=== PATIENT | male | born 1950 | race Caucasian/White ===

== ENCOUNTER 2020-10-31 12:23 | Outpatient (CLI) | payer MEDICARE, OTHER ==
--- NOTE | 2020-10-31 17:12 | XRAY Report ---
PROCEDURE: Chest 2 View X-Ray INDICATIONS: COUGH TECHNIQUE: 2 view(s) of the chest. COMPARISON: None. FINDINGS: Surgical changes and devices: None. Lungs and pleura: No pleural effusions or pneumothorax. Lungs are clear. Mediastinum: Mediastinal contours are normal. Heart size is normal. Bones and chest wall: No suspicious bony abnormalities. Soft tissues appear unremarkable. IMPRESSION: No acute cardiopulmonary disease process. Reviewed by: Kim Madison MD, PhD on 10/31/2020 5:10 PM PDT Approved by: Kim Madison MD, PhD on 10/31/2020 5:10 PM PDT Station ID: [id number]
== END 2020-10-31 12:24 | disposition home or self-care (01) ==
LOC: DI.N 12:23
PROVIDERS: ATTEND Physician Assistant
DX: R05 Cough (principal); R06.02 Shortness of breath

== ENCOUNTER 2023-01-13 12:23 | Outpatient (CLI) | payer MEDICARE ==
[2023-01-13] MEDS ORDERED: iohexoL-300 100 ML VIAL IVP ONE (13:29)
--- NOTE | 2023-01-14 16:56 | CT Report ---
PROCEDURE: IVP INDICATIONS: GROSS HEMATURIA CONTRAST: Omni 300, 140ml TECHNIQUE: After the administration of intravenous contrast, 5 mm thick sections acquired from the diaphragms to the symphysis. 5 mm thick coronal and sagittal reformats were acquired. For radiation dose reducti on, the following was used: automated exposure control, adjustment of mA and/or kV according to benedicto ent size. COMPARISON: None. FINDINGS: Image quality: Excellent. Urinary system: Both kidneys are normal in size. No hydronephrosis or nephrolithiasis on pre-contras t images. Left renal cystic lesion with a asymmetric thickened wall measuring 2.8 cm (series 6, imag e 38). Additional benign renal cystic lesions are present. The opacified renal calyces and ureters ap pear normal, without filling defect. Bladder wall thickness is normal, accounting for underdistentio n. No calcified bladder stones. No filling defect within the opacified bladder. OTHER Lung bases and heart: 3 mm solid nodule in the right middle lobe (series 6, image 1). Liver: Multiple hepatic cysts. Additional heterogeneous enhancement of the posterior segment 2 measur ing 3.3 cm (series 6, image 15). Gallbladder and biliary tree: Gallbladder sludge versus small stones. No wall thickening. No biliary dilation. Spleen: No splenomegaly. Pancreas: No pancreatic ductal dilation. Adrenals: No adrenal nodule. Bowel and peritoneum: No bowel distension. No pathologic free fluid. Abdominal Lymph nodes: No central or retroperitoneal adenopathy. Vessels: Unremarkable. Reproductive organs: Prostatomegaly. Pelvic Lymph nodes: Unremarkable. Bones: No aggressive osseous abnormality. Other: Small left inguinal hernia containing fat. IMPRESSION: Heterogeneous enhancement of the posterior segment 2 of the liver, measuring 3.3 cm. Mass not exclude d. Recommend CT (liver mass protocol). Left-sided renal cystic lesion with an asymmetrically thickened wall measuring 2.8 cm. This could rep resent a Bosniak 3 or 4 cystic mass. Recommend evaluation with MRI and urology referral. No filling defects within the opacified renal clicking system or ureters. Reviewed by: Tomi Castaneda on 01/14/2023 4:55 PM PDT Approved by: Tomi Castaneda on 01/14/2023 4:55 PM PDT Station ID: [id number]
== END 2023-01-13 12:24 | disposition home or self-care (01) ==
LOC: DI 12:23
PROVIDERS: ATTEND Physician Assistant
DX: R31.0 Gross hematuria (principal); N28.1 Cyst of kidney, acquired
CPT/HCPCS: 74178; Q9967

== ENCOUNTER 2023-01-26 09:11 | Outpatient (CLI) | payer MEDICARE ==
--- NOTE | 2023-01-26 10:20 | Ultrasound Report ---
PROCEDURE: Aorta Screening INDICATIONS: HIST OF SMOKING TECHNIQUE: Real time scanning was performed of the aorta and iliac arteries, with image documentatio n. COMPARISON: None. FINDINGS: Aorta: Proximal aortic diameter measures 2.8 x 2.7 cm. Mid-aorta measures 2.3 x 2.0 cm. Distal aor tic diameter is 1.9 x 1.9 cm. Iliac arteries: Right common iliac artery measures 1.3 x 1.3 cm. Left common iliac artery measures 1.3 x 1.3 cm. IMPRESSION: No abdominal aortic aneurysm. Consider 5 year follow-up. Recommended intervals for follow-up imaging of ectatic aortas and abdominal aortic aneurysms, per ACR consensus guidelines: 2.5-2.9 cm: 5 years 3.0-3.4 cm: 3 years 3.5-3.9 cm: 2 years 4.0-4.4 cm: 1 year 4.5-4.9 cm: 6 months + endovascular referral 5.0-5.5 cm: 3-6 months + endovascular referral Reviewed by: Jonatan Mercado MD on 01/26/2023 10:19 AM PDT Approved by: Jonatan Mercado MD on 01/26/2023 10:19 AM PDT Station ID: [id number]
== END 2023-01-26 09:12 | disposition home or self-care (01) ==
LOC: DI 09:11
PROVIDERS: ATTEND Physician Assistant
DX: Z13.6 Encounter for screening for cardiovascular disorders (principal); Z87.891 Personal history of nicotine dependence

== ENCOUNTER 2023-03-05 13:11 | Outpatient (CLI) | payer MEDICARE ==
--- NOTE | 2023-03-05 16:53 | CT Report ---
PROCEDURE: ABDOMEN W/WO INDICATIONS: ABNORMAL CT CONTRAST: 100ml omni 300 TECHNIQUE: 4 phase scanning was performed. After the administration of intravenous contrast, 5 mm thick section s acquired from the diaphragm to the symphysis. 5 mm coronal and sagittal reformats were acquired. For radiation dose reduction, the following was used: automated exposure control, adjustment of mA a nd/or kV according to patient size. COMPARISON: 01/13/2023 FINDINGS: Image quality: Good Lower chest: Basal scarring/atelectasis. No basal effusions. Small hiatal hernia. Normal heart size. Solid organs: There are liver cysts. Some cysts appear greater than fluid attenuation, but with no co nvincing enhancement. The heterogeneous posterior left lobe region corresponds to a cavernous hemangi roel. Gallbladder sludge versus contrast excretion. No pathologic dilation of the biliary system or pancrea tic duct. No splenomegaly. There is a tiny indeterminate hypervascular focus in the splenic superior pole, possibly another hemangioma. No adrenal nodules. There are renal cysts. Left lower pole Bosniak 3 lesion is present. No hydronephrosis. Vessels and lymph nodes: No pathologic lymphadenopathy by size criteria. No abdominal aortic aneurysm . Portal vein is patent. Bowel and peritoneum: No bowel obstruction. No pathologic abscess or ascites. Body wall: Unremarkable Bones: Degenerative changes, no acute or suspicious osseous finding. IMPRESSION: The posterior left hepatic lobe lesion corresponds to a benign cavernous hemangioma. Other suspected hepatic cysts are present, some of which measure above fluid density. Left lower pole Bosniak 3 renal lesion. If intervention is not pursued, recommend follow-up imaging i n 6 months or sooner with multiphase CT or MRI. Reviewed by: Jonatan Mercado MD on 03/05/2023 4:51 PM PDT Approved by: Jonatan Mercado MD on 03/05/2023 4:51 PM PDT Station ID: [id number]
[2023-03-05] MEDS ORDERED: iohexoL-300 100 ML VIAL IVP ONE (19:03)
== END 2023-03-05 13:12 | disposition home or self-care (01) ==
LOC: DI 13:11
PROVIDERS: ATTEND Physician Assistant
DX: D18.03 Hemangioma of intra-abdominal structures (principal); N28.89 Other specified disorders of kidney and ureter; Z79.899 Other long term (current) drug therapy
CPT/HCPCS: 74170; Q9967

== ENCOUNTER 2023-05-17 20:02 | Emergency (ER) | payer MEDICARE ==
--- NOTE | 2023-05-17 20:21 | ED Physician Documentation ---
History of Present Illness - Stated complaint Stated Complaint: - Chief complaint Chief Complaint: General - History obtained from History obtained from: Patient - Additonal information Additional information: 72-year-old gentleman with recent hematuria and necessitated Aldana. He had them for about a week. It was removed today and has not been able to urinate since. PD PAST MEDICAL HISTORY - Past Medical History Past Medical History: Yes - Past Surgical History Past Surgical History: Yes - Allergies Allergies/Adverse Reactions: Allergies Allergy/AdvReac Type Severity Reaction Status Date / Time No Known Drug Allergies Allergy Verified 05/17/23 20:10 - Social History Does the pt smoke?: No Smoking Status: Never smoker Does the pt drink ETOH?: No Does the pt have substance abuse?: No - Immunizations Immunizations are current?: Yes PD ED PE NORMAL - Vitals Vital signs reviewed: Yes - General General: Alert and oriented X 3, Other (Appears uncomfortable) - Abdomen Abdomen: Soft - Neuro Neuro: Alert and oriented X 3, Normal speech Results - Vitals Vitals: Vital Signs - 24 hr 05/17/23 05/17/23 20:10 21:07 Temperature 36.8 C Heart Rate 80 Respiratory 18 16 Rate Blood Pressure 160/90 H O2 Saturation 97 Oxygen O2 Source Room air PD Medical Decision Making - ED course ED course: I personally placed a 22 Austrian three-way after initial evaluation which had some small clots in it but was mostly clear. It was flushed and drained well. After which I performed a bedside ultrasound and there was no large amount of clot in the bladder. Departure - Departure Disposition: 01 Home, Self Care Clinical Impression: Urinary retention Condition: Good Record reviewed to determine appropriate education?: Yes Instructions: ED Catheter Care Aldana Comments: As discussed, given the relatively small amount of clot in the bladder I think more likely it is your prostate that is inflamed causing the urinary retention. Follow-up with your urologist and continue Flomax. Call his office tomorrow for an appointment. Return for new or worsening symptoms. Forms: PCP List
[2023-05-17 21:50] VITALS: BP 148/78; O2SAT 98
== END 2023-05-17 21:43 | disposition home or self-care (01) ==
LOC: ED 20:02
DX: T83.098A Other mechanical complication of other urinary catheter, initial encounter (principal); R33.9 Retention of urine, unspecified
CPT/HCPCS: 99281; 99283

== ENCOUNTER 2023-05-25 11:02 | Emergency (ER) | payer MEDICARE ==
[2023-05-25 11:16] VITALS: BP 143/82; O2SAT 99
[2023-05-25 12:00] LABS: BASOPHILS # (AUTO) 0.1 10^3/uL (0.0-0.1); BASOPHILS % (AUTO) 0.5 %; EOSINOPHILS # (AUTO) 0.3 10^3/uL (0.0-0.7); EOSINOPHILS % (AUTO) 3.2 %; HCT - HEMATOCRIT 36.1 % (42.0-52.0); HGB - HEMOGLOBIN 11.2 g/dL (14.0-18.0); LYMPHOCYTES # (AUTO) 1.5 10^3/uL (1.5-3.5); LYMPHOCYTES % (AUTO) 14.9 %; MEAN CORPUSCULAR HEMOGLOBIN 29.7 pg (27.0-31.0); MEAN CORPUSCULAR VOLUME 95.8 fL (80.0-94.0); MEAN PLATELET VOLUME 9.4 fL (7.4-11.4); MONOCYTES # (AUTO) 0.8 10^3/uL (0.0-1.0); MONOCYTES % (AUTO) 8.1 %; NEUTROPHILS # (AUTO) 7.1 10^3/uL (1.5-6.6); NEUTROPHILS % (AUTO) 72.9 %; PLT - PLATELET COUNT 334 10^3/uL (130-450); RED BLOOD COUNT 3.77 10^6/uL (4.70-6.10); RED CELL DISTRIBUTION WIDTH 14.6 % (12.0-15.0); WHITE BLOOD COUNT 9.7 x10^3/uL (4.8-10.8)
[2023-05-25 12:17] LABS: CALCIUM 9.5 mg/dL (8.5-10.3); CREATININE 0.9 mg/dL (0.6-1.3); POTASSIUM 4.8 mmol/L (3.5-4.5)
[2023-05-25 12:24] LABS: PARTIAL THROMBOPLASTIN TIME 30.9 secs (24.9-33.3)
[2023-05-25 12:28] LABS: INR 1.2 (0.8-1.2); PT - PROTHROMBIN TIME 13.2 secs (9.9-12.6)
--- NOTE | 2023-05-25 12:41 | ED Physician Documentation ---
History of Present Illness - Stated complaint Stated Complaint: BLOOD - Chief complaint Chief Complaint: Abd Pain - History obtained from History obtained from: Patient - History of Present Illness Timing: Today Pain level max: 0 Pain level now: 0 - Additonal information Additional information: 72-year-old male who has a history of enlarged prostate with bleeding into the bladder from enlarged veins. He has a Aldana catheter in place for recurrent hematuria. He underwent cystoscopy with cauterization of veins in January. His urologist is in [place]. Today he noted some blood in the catheter bag. No significant clots. No abdominal pain, fevers, chills. Review of Systems Constitutional: denies: Fever, Chills : reports: Hematuria Skin: denies: Rash Musculoskeletal: denies: Neck pain, Back pain Neurologic: denies: Headache PD PAST MEDICAL HISTORY - Past Medical History Past Medical History: Yes Cardiovascular: Hypertension Derm: Psoriasis - Past Surgical History Past Surgical History: Yes HEENT: Tonsil/Adenoidectomy - Present Medications Home Medications: Ambulatory Orders Medication Instructions Recorded Confirmed cephALEXin [Keflex] 500 mg PO Q6H #28 cap 05/25/23 - Allergies Allergies/Adverse Reactions: Allergies Allergy/AdvReac Type Severity Reaction Status Date / Time No Known Drug Allergies Allergy Verified 05/25/23 11:14 - Social History Does the pt smoke?: No Smoking Status: Never smoker Does the pt drink ETOH?: No Does the pt have substance abuse?: No - Immunizations Immunizations are current?: Yes - POLST Patient has POLST: No PD ED PE NORMAL - Vitals Vital signs reviewed: Yes - General General: Alert and oriented X 3, No acute distress - HEENT HEENT: Moist mucous membranes - Abdomen Abdomen: Soft, Non tender, Non distended - Male Male : Other (Aldana catheter in place, the urine bag is dark in color, but can still see through the bag. The more recent urine in the top of the Aldana tube is light yellow in color. No significant blood. There is sediment in the urine.) - Back Back: No CVA TTP - Derm Derm: Warm and dry - Neuro Neuro: Alert and oriented X 3 - Psych Psych: Normal mood, Normal affect Results - Vitals Vitals: Vital Signs - 24 hr 05/25/23 11:07 Temperature 36.0 C L Heart Rate 69 Respiratory 16 Rate Blood Pressure 143/82 H O2 Saturation 99 Oxygen O2 Source Room air - Labs Labs: Laboratory Tests 05/25/23 05/25/23 05/25/23 11:51 11:51 11:51 WBC 9.7 RBC 3.77 L Hgb 11.2 L Hct 36.1 L MCV 95.8 H MCH 29.7 MCHC 31.0 L RDW 14.6 Plt Count 334 MPV 9.4 Neut # (Auto) 7.1 H Lymph # (Auto) 1.5 Peach # (Auto) 0.8 Eos # (Auto) 0.3 Baso # (Auto) 0.1 Absolute Nucleated RBC 0.00 Nucleated RBC % 0.0 PT 13.2 H INR 1.2 APTT 30.9 Sodium 136 Potassium 4.8 H Chloride 104 Carbon Dioxide 27 Anion Gap 5.0 L BUN 17 Creatinine 0.9 Estimated GFR (MDRD) 82 L Glucose 97 Calcium 9.5 PD Medical Decision Making - ED course Complexity details: reviewed results, re-evaluated patient, considered differential, d/w patient ED course: Patient with a history of hematuria presents with hematuria. There is no evidence of a blocked Aldana catheter. He states that this happened recently with a UTI, therefore we will treat him with antibiotics. A urinalysis was sent as well. Possible that this could be irritation from the Aldana catheter as well, therefore recommend he contact his urologist to see if he needs a repeat cystoscopy. Patient is not on blood thinners. No significant lab abnor malities. We will treat with Keflex. Patient counseled regarding signs and symptoms for which I believe and urgent re-evaluation would be necessary. Patient with good understanding of and agreement to plan and is comfortable going home at this time This document was made in part using voice recognition software. While efforts are made to proofread this document, sound alike and grammatical errors may occur. Departure - Departure Disposition: Home, Self Care Clinical Impression: Hematuria Qualifiers: Hematuria type: gross Qualified Code(s): R31.0 - Gross hematuria Condition: Good Instructions: ED Catheter Care Aldana, ED Hematuria Follow-Up: JENNIFER HAHN PA-C [Primary Care Provider] - Within 1 week Prescriptions: cephALEXin [Keflex] 500 mg PO Q6H #28 cap Comments: Please contact your urologist. Please take all antibiotics until gone. The hematuria may be due to trauma to the inside of your bladder from the Aldana catheter. This may require another cystoscopy if they have more veins that they need to cauterize. We will start you on antibiotics as well. A urine culture will take 2 to 3 days, we will call you if an antibiotic change is needed. Please return for pain, fever or other new or worrisome symptoms. Make sure you are drinking plenty of water at home to prevent clot formation. Your prescription was sent electronically to [facility] in [place]. Forms: PCP List
[2023-05-25 13:38] LABS: GLUCOSE, URINE (UA) NEGATIVE (NEGATIVE); KETONES,URINE (UA) NEGATIVE (NEGATIVE); LEUKOCYTE ESTERASE, URINE SMALL (NEGATIVE); NITRITE,URINE NEGATIVE (NEGATIVE); OCCULT BLOOD,URINE LARGE (NEGATIVE); PROTEIN,URINE >=300 mg/dL (NEGATIVE); UROBILINOGEN,URINE 0.2 (NORMAL) E.U./dL (NORMAL)
[2023-05-25 13:40] LABS: CLARITY,URINE CLOUDY (CLEAR)
[2023-05-25 13:53] LABS: BACTERIA,URINE Moderate /HPF (None Seen); BILIRUBIN,URINE NEGATIVE (NEGATIVE); ICTOTEST,URINE NEGATIVE; RBC,URINE TNTC /HPF (0-5); SQUAMOUS EPITHELIAL CELL,UR NONE SEEN (<= Few); WBC,URINE >25 /HPF (0-3)
== END 2023-05-25 13:14 | disposition home or self-care (01) ==
LOC: ED 11:02
DX: R31.0 Gross hematuria (principal); R06.02 Shortness of breath; R06.00 Dyspnea, unspecified
CPT/HCPCS: 36415; 80048; 81001; 81003; 85025; 85610; 85730; 87077; 87086; 87181; 99283

== ENCOUNTER 2023-05-25 13:44 | Outpatient (CLI) | payer MEDICARE ==
--- NOTE | 2023-05-25 16:08 | XRAY Report ---
PROCEDURE: Chest 2 View X-Ray INDICATIONS: SOB EDEMA TECHNIQUE: 2 views of the chest were acquired. COMPARISON: Lung bases on CT abdomen 03/05/2023. CXR 10/31/2020. FINDINGS: Surgical changes and devices: None. Lungs and pleura: No pleural effusions or pneumothorax. Lungs are clear. Mediastinum: Mediastinal contours appear normal. Heart size is normal. Bones and chest wall: No suspicious bony lesions. Overlying soft tissues appear unremarkable. IMPRESSION: No acute cardiopulmonary process. Reviewed by: Sanya Dupont MD on 05/25/2023 4:07 PM PST Approved by: Sanya Dupont MD on 05/25/2023 4:07 PM [facility] Station ID: [id number]
== END 2023-05-25 13:45 | disposition home or self-care (01) ==
LOC: DI 13:44
PROVIDERS: ATTEND Physician Assistant
DX: R06.02 Shortness of breath (principal); R60.0 Localized edema

== ENCOUNTER 2023-05-27 08:56 | Emergency (ER) | payer MEDICARE ==
--- NOTE | 2023-05-27 10:38 | ED Physician Documentation ---
History of Present Illness - Stated complaint Stated Complaint: - Chief complaint Chief Complaint: General - History obtained from History obtained from: Patient - Additonal information Additional information: Patient is a 72-year-old male presenting for evaluation of issues with his Aldana catheter which was noticed overnight. Patient had a catheter placed on May 17 for urinary retention with some hematuria. Reports he was hospitalized in [facility] at the beginning of the month with similar issues with urinary retention and a large clot in his bladder that required cystoscopy. The catheter was then removed and presented back to the ER on the day it was removed as he was unable to urinate and a three-way catheter was placed. He was seen here 2 days ago with issues with his catheter and also put on an antibiotic. He states that he has been having leakage from his catheter which has been soaking his close and also has noticed more blood in his urine. He does not take a b lood thinner. He has an appointment for urology on June 10. No fever, chest pain, abdominal pain, vomiting. Review of Systems Constitutional: denies: Fever Cardiac: denies: Chest pain / pressure Respiratory: denies: Dyspnea GI: denies: Abdominal Pain : reports: Unable to Void, Hematuria PD PAST MEDICAL HISTORY - Past Medical History Past Medical History: Yes Cardiovascular: Hypertension Derm: Psoriasis - Past Surgical History Past Surgical History: Yes HEENT: Tonsil/Adenoidectomy - Present Medications Home Medications: Ambulatory Orders Medication Instructions Recorded Confirmed cephALEXin [Keflex] 500 mg PO Q6H #28 cap 05/25/23 - Allergies Allergies/Adverse Reactions: Allergies Allergy/AdvReac Type Severity Reaction Status Date / Time No Known Drug Allergies Allergy Verified 05/27/23 14:22 - Social History Does the pt smoke?: No Smoking Status: Never smoker Does the pt drink ETOH?: No Does the pt have substance abuse?: No - Immunizations Immunizations are current?: Yes - POLST Patient has POLST: No PD ED PE NORMAL - General General: Alert and oriented X 3, No acute distress, Well developed/nourished - HEENT HEENT: Atraumatic, Moist mucous membranes, Pharynx benign - Neck Neck: Supple, no meningeal sign - Cardiac Cardiac: RRR - Respiratory Respiratory: No respiratory distress, Clear bilaterally - Abdomen Abdomen: Normal bowel sounds, Soft, Non tender, Non distended - Male Male : Other (Three-way catheter with feliz colored urine few small clots and sediment) - Derm Derm: Warm and dry - Neuro Neuro: Normal speech Results - Vitals Vitals: Vital Signs - 24 hr 05/27/23 05/27/23 09:16 12:04 Temperature 36.0 C L 36.6 C Heart Rate 75 72 Respiratory 12 18 Rate Blood Pressure 135/65 H 117/56 L O2 Saturation 95 100 Oxygen O2 Source Room air PD Medical Decision Making - ED course ED course: Patient with Aldana catheter presenting for evaluation of leakage around the catheter site. Catheter was flushed and the clots were cleared per RN. Bladder was irrigated and then stopped and afterwards urine was faint pink-tinged but otherwise mostly clear. Patient is feeling well. Has upcoming appointment with urology. Understands concerning symptoms to return for. Departure - Departure Disposition: 01 Home, Self Care Clinical Impression: Aldana catheter problem, Intermittent gross hematuria Condition: Stable Instructions: ED Catheter Care Aldana Follow-Up: Osbaldo Penn MD [Provider Admit Priv/Credential] - Comments: We have cleared some clots from your bladder and your catheter appears to be working well again. Please continue to have close follow-up with urology and return to the ER with any concerns. Forms: PCP List Discharge Date/Time: 05/27/23 12:04
[2023-05-27 12:13] VITALS: BP 117/56; O2SAT 100
== END 2023-05-27 12:04 | disposition home or self-care (01) ==
LOC: ED 08:56
DX: T83.038A Leakage of other urinary catheter, initial encounter (principal); N02.9 Recurrent and persistent hematuria with unspecified morphologic changes; I10 Essential (primary) hypertension
CPT/HCPCS: 51700; 99284

== ENCOUNTER 2023-05-27 14:14 | Emergency (ER) | payer MEDICARE ==
[2023-05-27 14:54] LABS: BASOPHILS % (AUTO) 0.3 %; EOSINOPHILS # (AUTO) 0.3 10^3/uL (0.0-0.7); EOSINOPHILS % (AUTO) 2.5 %; HCT - HEMATOCRIT 35.2 % (42.0-52.0); HGB - HEMOGLOBIN 11.1 g/dL (14.0-18.0); LYMPHOCYTES # (AUTO) 1.1 10^3/uL (1.5-3.5); LYMPHOCYTES % (AUTO) 8.9 %; MEAN CORPUSCULAR HEMOGLOBIN 30.1 pg (27.0-31.0); MEAN CORPUSCULAR HGB CONC 31.5 g/dL (32.0-36.0); MEAN CORPUSCULAR VOLUME 95.4 fL (80.0-94.0); MEAN PLATELET VOLUME 9.3 fL (7.4-11.4); MONOCYTES % (AUTO) 8.3 %; NEUTROPHILS # (AUTO) 9.7 10^3/uL (1.5-6.6); NEUTROPHILS % (AUTO) 79.6 %; PLT - PLATELET COUNT 304 10^3/uL (130-450); RED BLOOD COUNT 3.69 10^6/uL (4.70-6.10); RED CELL DISTRIBUTION WIDTH 14.4 % (12.0-15.0); WHITE BLOOD COUNT 12.2 x10^3/uL (4.8-10.8)
[2023-05-27 15:37] LABS: CALCIUM 9.2 mg/dL (8.5-10.3); CREATININE 1.4 mg/dL (0.6-1.3); POTASSIUM 3.9 mmol/L (3.5-4.5)
[2023-05-27] MEDS ORDERED: AMOX/CLAV 875 MG/125 MG TABLET PO STA (15:52)
[2023-05-27] MEDS ORDERED: SODIUM CHLORIDE 0.9% 1,000 ML IV STA (15:54)
--- NOTE | 2023-05-27 16:05 | ED Physician Documentation ---
History of Present Illness - Stated complaint Stated Complaint: LEAK - Chief complaint Chief Complaint: General - History obtained from History obtained from: Patient, Family - History of Present Illness Timing: Today Pain level max: 0 Pain level now: 0 - Additonal information Additional information: Patient is a 72-year-old male who presents to the emergency department with hematuria. Seen here earlier today. His catheter was flushed but continues to have blood in the urine at home. He is scheduled for an appoint with urology in June. He was recently placed on Keflex for a UTI. No fevers. No chills. He was lightheaded earlier today while in the shower. Currently asymptomatic. No abdominal pain. He is not on blood thinners. Review of Systems Constitutional: denies: Fever, Chills GI: denies: Vomiting, Diarrhea : reports: Hematuria Skin: denies: Rash Musculoskeletal: denies: Neck pain, Back pain Neurologic: denies: Headache PD PAST MEDICAL HISTORY - Past Medical History Past Medical History: Yes Cardiovascular: Hypertension Derm: Psoriasis - Past Surgical History Past Surgical History: Yes HEENT: Tonsil/Adenoidectomy - Present Medications Home Medications: Ambulatory Orders Medication Instructions Recorded Confirmed cephALEXin [Keflex] 500 mg PO Q6H #28 cap 05/25/23 Amox/Clav 875/125 [Augmentin] 1 tab PO Q12H #14 tablet 05/27/23 - Allergies Allergies/Adverse Reactions: Allergies Allergy/AdvReac Type Severity Reaction Status Date / Time No Known Drug Allergies Allergy Verified 05/27/23 14:22 - Social History Does the pt smoke?: No Smoking Status: Never smoker Does the pt drink ETOH?: No Does the pt have substance abuse?: No - Immunizations Immunizations are current?: Yes - POLST Patient has POLST: No PD ED PE NORMAL - Vitals Vital signs reviewed: Yes - General General: Alert and oriented X 3, No acute distress - HEENT HEENT: PERRL, Moist mucous membranes - Neck Neck: Supple, no meningeal sign - Cardiac Cardiac: RRR, Strong equal pulses - Respiratory Respiratory: No respiratory distress, Clear bilaterally - Abdomen Abdomen: Soft, Non tender, Non distended - Derm Derm: Warm and dry - Extremities Extremities: No edema - Neuro Neuro: Alert and oriented X 3 - Psych Psych: Normal mood, Normal affect - Free text exam Free text exam: Dark blood in the Aldana catheter. Results - Vitals Vitals: Vital Signs - 24 hr 05/27/23 05/27/23 14:22 18:20 Temperature 36.5 C Heart Rate 110 H 80 Respiratory 16 18 Rate Blood Pressure 110/63 112/64 O2 Saturation 99 98 Oxygen O2 Source Room air - Labs Labs: Laboratory Tests 05/27/23 05/27/23 14:49 14:49 WBC 12.2 H RBC 3.69 L Hgb 11.1 L Hct 35.2 L MCV 95.4 H MCH 30.1 MCHC 31.5 L RDW 14.4 Plt Count 304 MPV 9.3 Neut # (Auto) 9.7 H Lymph # (Auto) 1.1 L [place] # (Auto) 1.0 Eos # (Auto) 0.3 Baso # (Auto) 0.0 Absolute Nucleated RBC 0.00 Nucleated RBC % 0.0 Sodium 135 Potassium 3.9 Chloride 101 Carbon Dioxide 28 Anion Gap 6.0 BUN 16 Creatinine 1.4 H Estimated GFR (MDRD) 50 L Glucose 112 H Calcium 9.2 PD Medical Decision Making - ED course Complexity details: reviewed results, re-evaluated patient, considered differential, d/w patient ED course: Patient with continued hematuria. His urinary culture is positive for Enterococcus. I will change him from Keflex to Augmentin. The Aldana catheter was changed to a 24 Japanese three-way catheter. Bladder irrigation performed. Discussed the case with Dr. Penn, urology, recommends teaching the family and irrigate the Aldana catheter at home, agrees with changing the antibiotic and to return should he worsen. Patient is well-appearing, nontoxic. Afebrile. No significant drop in his hemoglobin from prior visit. Patient is not on any blood thinners. Family was taught to irrigate the catheter. Patient and family counseled regarding signs and symptoms for which I believe and urgent re- evaluation would be necessary. Patient with good understanding of and agreement to plan and is comfortable going home at this time This document was made in part using voice recognition software. While efforts are made to proofread this document, sound alike and grammatical errors may occur. Departure - Departure Disposition: 01 Home, Self Care Clinical Impression: Hematuria Qualifiers: Hematuria type: gross Qualified Code(s): R31.0 - Gross hematuria UTI (urinary tract infection) Qualifiers: Urinary tract infection type: acute cystitis Hematuria presence: with hematuria Qualified Code(s): N30.01 - Acute cystitis with hematuria Condition: Good Instructions: ED UTI Cystitis Male Follow-Up: JENNIFER HAHN PA-C [Primary Care Provider] - Osbaldo Penn MD [Provider Admit Priv/Credential] - Prescriptions: Amox/Clav 875/125 [Augmentin] 1 tab PO Q12H #14 tablet Comments: Your new [facility] was sent to [facility] in [place]. Please follow-up with Dr. Penn for further care. We will change her antibiotic from Keflex to Augmentin. You were given IV fluids here. Your blood counts are the same as they were several days ago. Dr. Penn also wanted you to have supplies and teaching on how to irrigate the Aldana at home. Please return if you worsen or you can contact Dr. Penn's office directly. Forms: PCP List Discharge Date/Time: 05/27/23 18:38
[2023-05-27 18:21] VITALS: BP 112/64; O2SAT 98
== END 2023-05-27 18:38 | disposition home or self-care (01) ==
LOC: ED 14:14
DX: T83.038A Leakage of other urinary catheter, initial encounter (principal); R31.0 Gross hematuria; N39.0 Urinary tract infection, site not specified; B95.2 Enterococcus as the cause of diseases classified elsewhere; Z16.19 Resistance to other specified beta lactam antibiotics; I10 Essential (primary) hypertension
CPT/HCPCS: 36415; 51700; 51702; 80048; 85025; 99284; A9270

== ENCOUNTER 2023-10-06 15:31 | Outpatient (CLI) | payer MEDICARE ==
[2023-10-06 17:40] LABS: BASOPHILS % (AUTO) 0.1 %; HCT - HEMATOCRIT 43.5 % (42.0-52.0); HGB - HEMOGLOBIN 13.9 g/dL (14.0-18.0); LYMPHOCYTES % (AUTO) 5.2 %; MEAN CORPUSCULAR HEMOGLOBIN 28.4 pg (27.0-31.0); MEAN CORPUSCULAR VOLUME 88.8 fL (80.0-94.0); MEAN PLATELET VOLUME 10.7 fL (7.4-11.4); MONOCYTES % (AUTO) 10.1 %; NEUTROPHILS % (AUTO) 84.2 %; PLT - PLATELET COUNT 280 10^3/uL (130-450); RED CELL DISTRIBUTION WIDTH 15.6 % (12.0-15.0); WHITE BLOOD COUNT 18.9 x10^3/uL (4.8-10.8)
[2023-10-06 17:46] LABS: ABNORMAL LYMPHS % (MANUAL) 0 %
[2023-10-06 17:55] LABS: ALBUMIN 4.2 g/dL (3.2-5.5); ALBUMIN/GLOBULIN RATIO 1.5 (1.0-2.2); BILIRUBIN,TOTAL 0.8 mg/dL (0.2-1.0); CALCIUM 9.7 mg/dL (8.5-10.3); POTASSIUM 4.5 mmol/L (3.5-4.5)
[2023-10-06 18:30] LABS: BAND NEUTROPHILS % (MANUAL) 1 %; LYMPHOCYTES # (MANUAL) 0.9 10^3/uL (1.5-3.5); LYMPHOCYTES % (MANUAL) 3 %; METAMYELOCYTES % (MANUAL) 1 %; MONOCYTES # (MANUAL) 1.1 10^3/uL (0.0-1.0); NEUTROPHILS # (MANUAL) 16.6 10^3/uL (1.5-6.6); REACTIVE LYMPHS % (MANUAL) 2 %
[2023-10-06 18:31] LABS: PLATELET ESTIMATE, MANUAL NORMAL (130-450,000) (NORMAL); PLATELET MORPHOLOGY NORMAL APPEARANCE (NORMAL); RBC MORPHOLOGY (MULTIPLE) NORMAL APPEARANCE (NORMAL)
[2023-10-06 18:32] LABS: DIFFERENTIAL COMMENT MANUAL DIFFERENTIAL
== END 2023-10-06 15:32 | disposition home or self-care (01) ==
LOC: LAB.N 15:31
PROVIDERS: ATTEND Family Medicine
DX: R10.11 Right upper quadrant pain (principal)
CPT/HCPCS: 36415; 80053; 83690; 85025

== ENCOUNTER 2023-10-06 18:51 | Inpatient (IN) | payer MEDICARE ==
[2023-10-06 19:22] LABS: BASOPHILS % (AUTO) 0.1 %; EOSINOPHILS % (AUTO) 0.1 %; HCT - HEMATOCRIT 43.3 % (42.0-52.0); HGB - HEMOGLOBIN 13.6 g/dL (14.0-18.0); LYMPHOCYTES % (AUTO) 5.8 %; MEAN CORPUSCULAR HEMOGLOBIN 28.2 pg (27.0-31.0); MEAN CORPUSCULAR HGB CONC 31.4 g/dL (32.0-36.0); MEAN CORPUSCULAR VOLUME 89.6 fL (80.0-94.0); MEAN PLATELET VOLUME 10.1 fL (7.4-11.4); MONOCYTES % (AUTO) 11.1 %; NEUTROPHILS % (AUTO) 82.6 %; PLT - PLATELET COUNT 255 10^3/uL (130-450); RED BLOOD COUNT 4.83 10^6/uL (4.70-6.10); RED CELL DISTRIBUTION WIDTH 15.6 % (12.0-15.0); WHITE BLOOD COUNT 18.2 x10^3/uL (4.8-10.8)
[2023-10-06 19:24] LABS: ABNORMAL LYMPHS % (MANUAL) 0 %; BAND NEUTROPHILS % (MANUAL) 0 %
[2023-10-06 19:35] LABS: ALBUMIN 4.1 g/dL (3.2-5.5); ALBUMIN/GLOBULIN RATIO 1.4 (1.0-2.2); BILIRUBIN,TOTAL 0.9 mg/dL (0.2-1.0); CALCIUM 9.4 mg/dL (8.5-10.3); POTASSIUM 4.4 mmol/L (3.5-4.5); TOTAL PROTEIN 7.1 g/dL (6.4-8.9)
[2023-10-06 19:47] LABS: DIFFERENTIAL COMMENT MANUAL DIFFERENTIAL; LYMPHOCYTES # (MANUAL) 1.3 10^3/uL (1.5-3.5); LYMPHOCYTES % (MANUAL) 4 %; MONOCYTES # (MANUAL) 1.1 10^3/uL (0.0-1.0); NEUTROPHILS # (MANUAL) 15.8 10^3/uL (1.5-6.6); PLATELET ESTIMATE, MANUAL NORMAL (130-450,000) (NORMAL); PLATELET MORPHOLOGY NORMAL APPEARANCE (NORMAL); RBC MORPHOLOGY (MULTIPLE) NORMAL APPEARANCE (NORMAL); REACTIVE LYMPHS % (MANUAL) 3 %
[2023-10-06] MEDS: SODIUM CHLORIDE 0.9% 1,000 ML IV STA (20:17)
[2023-10-06] MEDS: HYDROmorphone 1 MG/ML CARPUJECT IVP STA ×2 (20:17→22:34)
--- NOTE | 2023-10-06 20:21 | ED Physician Documentation ---
PD HPI ABD PAIN - Stated complaint Stated Complaint: R SIDE PX - Chief complaint Chief Complaint: Abd Pain - History obtained from History obtained from: Patient - History of Present Illness Pain level max: 8 Pain level now: 8 Location: RUQ Improved by: Vomiting Associated symptoms: Nausea, Vomiting. No: Diarrhea, Constipation, Melena, Hematochezia, Dysuria - Additional information Additional information: Patient is a 73-year-old male who presents to the emergency department with right upper quadrant abdominal pain, nausea and vomiting since yesterday. Went to the walk-in clinic today and had an ultrasound ordered here at the hospital. He states his ultrasound appointment is at 9 PM. He decided to check into the emergency department for pain control. Last bout of emesis was at noon today. No fevers. No chills. No diarrhea. No constipation. All of the pain is in the right upper quadrant. Nothing seems to make it better or worse. Has not had similar symptoms previously. Review of Systems Constitutional: denies: Fever, Chills GI: reports: Nausea, Vomiting. denies: Diarrhea Skin: denies: Rash Musculoskeletal: denies: Neck pain, Back pain PD PAST MEDICAL HISTORY - Past Medical History Past Medical History: Yes Cardiovascular: Hypertension Respiratory: None Neuro: None Endocrine/Autoimmune: None GI: None : Benign prostate hypertrophy HEENT: None Psych: None Musculoskeletal: None Derm: Psoriasis - Past Surgical History Past Surgical History: Yes HEENT: Tonsil/Adenoidectomy - Present Medications Home Medications: Ambulatory Orders Medication Instructions Recorded Confirmed Finasteride [Proscar] 5 mg PO DAILY 10/06/23 10/06/23 Lisinopril [Zestril] 20 mg PO DAILY 10/06/23 10/06/23 Spironolactone [Aldactone] 25 mg PO DAILY 10/06/23 10/06/23 Tamsulosin [Flomax] 0.4 mg PO DAILY 10/06/23 10/06/23 - Allergies Allergies/Adverse Reactions: Allergies Allergy/AdvReac Type Severity Reaction Status Date / Time No Known Drug Allergies Allergy Verified 10/06/23 19:02 - Social History Does the pt smoke?: No Smoking Status: Never smoker Does the pt drink ETOH?: No Does the pt have substance abuse?: No - Immunizations Immunizations are current?: Yes - POLST Patient has POLST: No PD ED PE NORMAL - Vitals Vital signs reviewed: Yes - General General: Alert and oriented X 3, No acute distress, Well developed/nourished - HEENT HEENT: PERRL - Cardiac Cardiac: RRR, Strong equal pulses - Respiratory Respiratory: No respiratory distress, Clear bilaterally - Abdomen Abdomen: Soft, Non distended, Other (Right upper quadrant tenderness to palpation. Positive Campbell sign.) - Back Back: No CVA TTP, No spinal TTP - Derm Derm: Warm and dry - Extremities Extremities: No edema - Neuro Neuro: Alert and oriented X 3 - Psych Psych: Normal mood, Normal affect Results - Vitals Vitals: Vital Signs - 24 hr 10/06/23 10/06/23 10/06/23 18:54 20:30 22:00 Temperature 36.7 C Heart Rate 81 79 81 Respiratory 16 16 16 Rate Blood Pressure 135/70 H 131/85 H O2 Saturation 95 93 95 10/06/23 22:30 Temperature Heart Rate 76 Respiratory 16 Rate Blood Pressure 126/74 O2 Saturation 94 Oxygen O2 Source Room air - Labs Labs: Laboratory Tests 10/06/23 10/06/23 19:17 19:17 WBC 18.2 H RBC 4.83 Hgb 13.6 L Hct 43.3 MCV 89.6 MCH 28.2 MCHC 31.4 L RDW 15.6 H Plt Count 255 MPV 10.1 Neut # (Auto) Not Reportable Lymph # (Auto) Not Reportable [place] # (Auto) Not Reportable Eos # (Auto) Not Reportable Baso # (Auto) Not Reportable Absolute Nucleated RBC Not Reportable Total Counted 100 Band Neuts % (Manual) 0 Reactive Lymphs % (Man) 3 Abnorm Lymph % (Manual) 0 Nucleated RBC % Not Reportable Neutrophils # (Manual) 15.8 H Lymphocytes # (Manual) 1.3 L Monocytes # (Manual) 1.1 H Eosinophils # (Manual) 0.0 Basophils # (Manual) 0.0 Differential Comment MANUAL DIFFERENTIAL Platelet Estimate NORMAL (130-450,000) Platelet Morphology NORMAL APPEARANCE RBC Morph Micro Appear NORMAL APPEARANCE Sodium 134 L Potassium 4.4 Chloride 101 Carbon Dioxide 26 Anion Gap 7.0 BUN 21 H Creatinine 1.0 Estimated GFR (MDRD) 73 L Glucose 123 H Calcium 9.4 Total Bilirubin 0.9 AST 17 ALT 13 Alkaline Phosphatase 74 Total Protein 7.1 Albumin 4.1 Globulin 3.0 Albumin/Globulin Ratio 1.4 Lipase 34 - Rads (name of study) RUQ US Relevant Findings:: Final report received, See rad report PD Medical Decision Making - ED course Complexity details: reviewed results, re-evaluated patient, considered differential, d/w patient ED course: 73-year-old male with what appears to be acute cholecystitis clinically and confirmed on ultrasound. Given IV Zosyn. Pain well-controlled with IV Dilaudid. Discussed the case with Dr. Smyth. Departure - Departure Disposition: ED Place in Observation Clinical Impression: Cholecystitis Condition: Stable
[2023-10-06] MEDS: PIPERACILLIN/TAZOBACTAM 3.375 GM in SODIUM CHLORIDE 0.9% MINIBAG 100 ML IV STA (21:40)
--- NOTE | 2023-10-06 22:02 | Ultrasound Report ---
PROCEDURE: Abdomen Limited INDICATIONS: RUQ pain TECHNIQUE: Real-time focused scanning was performed of the abdomen, with image documentation. COMPARISONS: CT abdomen 03/05/2023, CT abdomen pelvis 01/13/2023 FINDINGS: Liver: Liver is normal in size and homogeneous in echotexture. Left hepatic hemangioma as well as s imple cysts are unchanged. Gallbladder: Multiple mobile echogenic foci. The wall is thickened measuring 4.2 to 4.9 mm Biliary ducts: Intrahepatic bile ducts are non-dilated. Extrahepatic bile duct caliber measures 4.6 mm. Normal is 6-7 mm or less in diameter, or 10 mm or less post-cholecystectomy. Pancreas: Visualized portions of the pancreas are sonographically normal. Right kidney: Normal in size and echotexture. Right kidney measures 12.8 cm long. No hydronephrosis or nephrolithiasis. No solid masses. No complex renal cystic lesions which require follow-up. Aorta: Visualized aorta is normal in caliber at less than 3 cm. IVC: Intrahepatic inferior vena cava is patent. Miscellaneous: No free abdominal fluid. IMPRESSION: Cholelithiasis with wall thickening with imaging appearance of cholecystitis. Recommend clinical magui elation. Reviewed by: Kacie Chau MD on 10/06/2023 10:01 PM PDT Approved by: Kacie Chau MD on 10/06/2023 10:01 PM PDT Station ID: [id number]
[2023-10-06] MEDS ORDERED: SODIUM CHLORIDE FLUSH 0.9% 10 ML SYRINGE IVP PRN (22:40)
[2023-10-06] MEDS ORDERED: ONDANSETRON 4 MG/2 ML VIAL IVP PRN (22:47)
--- NOTE | 2023-10-06 22:55 | HISTORY & PHYSICAL EXAMINATION ---
HPI - Admitted From Admitted from: ED - History Obtained From History obtained from: Patient Exam limitations: No limitations - History of Present Illness HPI Comment/Other: 73yoM with 24hrs of epigastric/RUQ pain that was associated with nausea and emesis. Patient presented to walk-in clinic initially earlier today , where labs were ordered and an outpatient US were ordered. When WBC returned at 18, patient was instructed to go to ED, and coincidentally the outpatient US was scheduled for 9pm tonDt, which aligned with the time the patient came to the ED. His n/v have subsided but the RUQ pain persists. Endorses some chills yesterday, no fever or chills now. Denies diarrhea. Has indwelling urinary catheter 2/2 hematura (pending urology procedure this coming wednesday). Patient denies having similar RUQ pain in the past. PMH/PSH - Past Medical History Cardiovascular: positive: Hypertension Respiratory: positive: None Neuro: positive: None Endocrine/Autoimmune: positive: None GI: positive: None : positive: Benign prostate hypertrophy, Indwelling catheter, Other (hematuria) HEENT: positive: None, Macular degeneration Psych: positive: None Musculoskeletal: positive: None Derm: positive: Psoriasis MRSA Hx?: No - Past Surgical History HEENT: positive: Tonsil/Adenoidectomy (age 3) Social & Family Hx - Living Situation Living Arrangement: At home Living Situation: With spouse/s.o. - Social History Does the pt smoke?: No Smoking Status: Former smoker (quit 1984) Does the pt drink ETOH?: No Does the pt have substance abuse?: No - POLST Patient has POLST: No Meds/Allgy - Home Medications Home Medications: Ambulatory Orders Medication Instructions Recorded Confirmed Finasteride [Proscar] 5 mg PO DAILY 10/06/23 10/06/23 Lisinopril [Zestril] 20 mg PO DAILY 10/06/23 10/06/23 Spironolactone [Aldactone] 25 mg PO DAILY 10/06/23 10/06/23 Tamsulosin [Flomax] 0.4 mg PO DAILY 10/06/23 10/06/23 - Allergies Allergies/Adverse Reactions: Allergies Allergy/AdvReac Type Severity Reaction Status Date / Time No Known Drug Allergies Allergy Verified 10/06/23 19:02 Review of Systems - Constitutional Constitutional: reports: Chills - Gastrointestinal Gastrointestinal: reports: Abdominal pain, Nausea, Vomiting Exam - Vital Signs Reviewed Vital Signs: Yes Vital Signs: Vital Signs x48h Temp Pulse Resp BP Pulse Ox 10/06/23 22:30 76 16 126/74 94 10/06/23 22:00 81 16 131/85 H 95 10/06/23 20:30 79 16 93 10/06/23 18:54 36.7 C 81 16 135/70 H 95 - Physical Exam General Appearance: positive: No acute distress, Alert Eyes Bilateral: positive: Normal inspection, PERRL ENT: positive: ENT inspection nml, Pharynx nml, No signs of dehydration Neck: positive: Nml inspection, Thyroid nml, No JVD, Trachea midline Respiratory: positive: Chest non-tender, No respiratory distress, Breath sounds nml Cardiovascular: positive: Regular rate & rhythm, No murmur, No gallop Peripheral Pulses: positive: 2+ Abdomen: positive: No distention, Tenderness (mild RUQ ttp with positive Murpheys sign). negative: Guarding Skin: positive: Color nml, No rash, Warm, Dry Extremities: positive: Non-tender, Full ROM, Nml appearance Neurologic/Psychiatric: positive: Oriented x3, Mood/affect nml Results - Lab Results Fish Bones: 10/06/23 19:17 10/06/23 19:17 Other Lab Results: Lab Results x24hrs 10/06/23 10/06/23 Range/Units 19:17 19:17 WBC 18.2 H (4.8-10.8) x10^3/uL RBC 4.83 (4.70-6.10) 10^6/uL Hgb 13.6 L (14.0-18.0) g/dL Hct 43.3 (42.0-52.0) % MCV 89.6 (80.0-94.0) fL MCH 28.2 (27.0-31.0) pg MCHC 31.4 L (32.0-36.0) g/dL RDW 15.6 H (12.0-15.0) % Plt Count 255 (130-450) 10^3/uL MPV 10.1 (7.4-11.4) fL Neut # (Auto) Not Reportable Lymph # (Auto) Not Reportable [place] # (Auto) Not Reportable Eos # (Auto) Not Reportable Baso # (Auto) Not Reportable Absolute Nucleated RBC Not Reportable Total Counted 100 Band Neuts % (Manual) 0 (0 - 10) % Reactive Lymphs % (Man) 3 % Abnorm Lymph % (Manual) 0 % Nucleated RBC % Not Reportable Neutrophils # (Manual) 15.8 H (1.5-6.6) 10^3/uL Lymphocytes # (Manual) 1.3 L (1.5-3.5) 10^3/uL Monocytes # (Manual) 1.1 H (0.0-1.0) 10^3/uL Eosinophils # (Manual) 0.0 (0-0.7) 10^3/uL Basophils # (Manual) 0.0 (0-0.1) 10^3/uL Differential Comment MANUAL DIFFERENTIAL Platelet Estimate NORMAL (130-450,000) (NORMAL) Platelet Morphology NORMAL APPEARANCE (NORMAL) RBC Morph Micro Appear NORMAL APPEARANCE (NORMAL) Sodium 134 L (135-145) mmol/L Potassium 4.4 (3.5-4.5) mmol/L Chloride 101 (101-111) mmol/L Carbon Dioxide 26 (21-32) mmol/L Anion Gap 7.0 (6-13) BUN 21 H (6-20) mg/dL Creatinine 1.0 (0.6-1.3) mg/dL Estimated GFR (MDRD) 73 L (>89) Glucose 123 H (74-104) mg/dL Calcium 9.4 (8.5-10.3) mg/dL Total Bilirubin 0.9 (0.2-1.0) mg/dL AST 17 (10-42) IU/L ALT 13 (10-60) IU/L Alkaline Phosphatase 74 (42-121) IU/L Total Protein 7.1 (6.4-8.9) g/dL Albumin 4.1 (3.2-5.5) g/dL Globulin 3.0 (2.1-4.2) g/dL Albumin/Globulin Ratio 1.4 (1.0-2.2) Lipase 34 (11-82) U/L - Diagnostic Imaging Results Diagnostic Imaging Results: positive: Prelim report reviewed (4mm GB wall, multiple small stones stones, 4mm CBD, trace PCF) - EKG Results EKG Interpreted Independently: Yes Sepsis Event Note (H) - Evaluation Current Stage of Sepsis: Ruled out Impression/Plan - Problem List Problem List: Acute calculous cholecystitis. 73yoM with 24h of epigastric and RUQ pain associated with n/v and a work up consistent with acute cholecystitis. HD normal, WBC 18, LFTs and lipase normal, RUQUS demonstrating GBW of 4mm with multiple small stones and trace pericholecystic fluid, no CBD dilation (4-5mm). Patient and educated on nature of diagnosis and indication for surgery. Risk of failure to resolve or recurrence with antibiotics alone. Discussed risk of pain, bleeding, infection, damage to surrounding structures including CBD, bile leak, drain placement, open surgery, retained stone, need for further procedures. They understand and agree to proceed with surgery. Consent signed. - given zosyn in ED - continue zosyn and IVF overnight, plan for lap mattie first case in AM - repeat CBC, CMP/LFTs in AM preop - EKG obtained in ED Daniela Smyth DO, FACS General Surgeon
[2023-10-07] MEDS: ACETAMINOPHEN 1,000 MG/100 ML 1,000 MG/100 ML BAG IV SCH (00:03)
[2023-10-07] MEDS: SODIUM CHLORIDE FLUSH 0.9% 10 ML SYRINGE IVP SCH ×2 (01:09→16:32)
[2023-10-07] MEDS: SODIUM CHLORIDE 0.9% 1,000 ML IV SCH (02:07)
[2023-10-07] MEDS: PIPERACILLIN/TAZOBACTAM 3.375 GM in SODIUM CHLORIDE 0.9% MINIBAG 100 ML IV SCH ×2 (03:12→12:56)
[2023-10-07] MEDS: HYDROmorphone 0.5 MG/0.5 ML SYRINGE IVP PRN (03:16)
[2023-10-07 05:22] LABS: BASOPHILS % (AUTO) 0.2 %; EOSINOPHILS # (AUTO) 0.1 10^3/uL (0.0-0.7); EOSINOPHILS % (AUTO) 0.4 %; HCT - HEMATOCRIT 42.8 % (42.0-52.0); HGB - HEMOGLOBIN 13.2 g/dL (14.0-18.0); LYMPHOCYTES # (AUTO) 1.1 10^3/uL (1.5-3.5); LYMPHOCYTES % (AUTO) 6.1 %; MEAN CORPUSCULAR HEMOGLOBIN 28.3 pg (27.0-31.0); MEAN CORPUSCULAR HGB CONC 30.8 g/dL (32.0-36.0); MEAN CORPUSCULAR VOLUME 91.8 fL (80.0-94.0); MEAN PLATELET VOLUME 10.3 fL (7.4-11.4); MONOCYTES # (AUTO) 1.9 10^3/uL (0.0-1.0); MONOCYTES % (AUTO) 10.4 %; NEUTROPHILS % (AUTO) 82.4 %; PLT - PLATELET COUNT 226 10^3/uL (130-450); RED BLOOD COUNT 4.66 10^6/uL (4.70-6.10); RED CELL DISTRIBUTION WIDTH 15.9 % (12.0-15.0); WHITE BLOOD COUNT 18.2 x10^3/uL (4.8-10.8)
[2023-10-07 05:39] LABS: BILIRUBIN,URINE NEGATIVE (NEGATIVE); GLUCOSE, URINE (UA) NEGATIVE (NEGATIVE); KETONES,URINE (UA) NEGATIVE (NEGATIVE); LEUKOCYTE ESTERASE, URINE SMALL (NEGATIVE); NITRITE,URINE POSITIVE (NEGATIVE); OCCULT BLOOD,URINE MODERATE (NEGATIVE); PH,URINE 5.5 PH (5.0-7.5); PROTEIN,URINE 100 mg/dL (NEGATIVE); UROBILINOGEN,URINE 1 (NORMAL) E.U./dL (NORMAL)
[2023-10-07 05:39] LABS: ALBUMIN 3.6 g/dL (3.2-5.5); ALBUMIN/GLOBULIN RATIO 1.2 (1.0-2.2); BILIRUBIN,TOTAL 1.6 mg/dL (0.2-1.0); CALCIUM 8.9 mg/dL (8.5-10.3); POTASSIUM 4.1 mmol/L (3.5-4.5); TOTAL PROTEIN 6.5 g/dL (6.4-8.9)
[2023-10-07 05:46] LABS: BACTERIA,URINE Moderate /HPF (None Seen); CLARITY,URINE SL. CLOUDY (CLEAR); SQUAMOUS EPITHELIAL CELL,UR NONE SEEN (<= Few); WBC,URINE >25 /HPF (0-3)
[2023-10-07 06:02] LABS: DIFFERENTIAL COMMENT MANUAL=AUTO DIFF; PLATELET ESTIMATE, MANUAL NORMAL (130-450,000) (NORMAL); RBC MORPHOLOGY (MULTIPLE) NORMAL APPEARANCE (NORMAL)
[2023-10-07] MEDS ORDERED: fentaNYL 100 MCG/2 ML VIAL ONE ×3 (06:49→10:00)
[2023-10-07] MEDS ORDERED: ROCURONIUM 50 MG/5 ML VIAL ONE ×2 (06:49→08:13)
[2023-10-07] MEDS ORDERED: LIDOCAINE-PF 2% 10 ML AMP SUBQ ONE (06:49)
[2023-10-07] MEDS ORDERED: PROPOFOL 200 MG/20 ML VIAL IVP ONE (06:49)
[2023-10-07] MEDS ORDERED: MIDAZOLAM 2 MG/2 ML VIAL ONE (06:49)
--- NOTE | 2023-10-07 07:04 | ANESTHESIA ---
Pre-Anesthesia VS, & Labs - Diagnosis acute cholecystitis - Procedure laparoscopic cholecystectomy Vital Signs: Temp Pulse Resp BP Pulse Ox O2 Flow Rate 36.6 C 75 118 H 117/71 81 L 10/07/23 05:00 10/07/23 05:00 10/07/23 05:00 10/07/23 05:00 10/07/23 05:00 Height: 5 ft 7 in Weight (kg): 98.5 kg Body Mass Index: 34.0 BMI Classification: Obese - NPO >8 hours - Lab Results Current Lab Results: Laboratory Tests 10/07/23 05:15: Sodium 134 L, Potassium 4.1, Chloride 104, Carbon Dioxide 26, Anion Gap 4.0 L, BUN 20, Creatinine 1.0, Estimated GFR (MDRD) 73 L, Glucose 120 H, Calcium 8.9, Total Bilirubin 1.6 H, AST 55 H, ALT 46, Alkaline Phosphatase 82, Total Protein 6.5, Albumin 3.6, Globulin 2.9, Albumin/Globulin Ratio 1.2 10/07/23 05:15: WBC 18.2 H, RBC 4.66 L, Hgb 13.2 L, Hct 42.8, MCV 91.8, MCH 28.3, MCHC 30.8 L, RDW 15.9 H, Plt Count 226, MPV 10.3, Neut # (Auto) 15.0 H, Lymph # (Auto) 1.1 L, [place] # (Auto) 1.9 H, Eos # (Auto) 0.1, Baso # (Auto) 0.0, Absolute Nucleated RBC 0.00, Band Neuts % (Manual) Not Reportable, Abnorm Lymph % (Manual) Not Reportable, Nucleated RBC % 0.0, Neutrophils # (Manual) Not Reportable, Lymphocytes # (Manual) Not Reportable, Monocytes # (Manual) Not Reportable, Eosinophils # (Manual) Not Reportable, Basophils # (Manual) Not Reportable, Differential Comment MANUAL=AUTO DIFF, Platelet Estimate NORMAL (130-450,000), RBC Morph Micro Appear NORMAL APPEARANCE 10/06/23 19:17: Sodium 134 L, Potassium 4.4, Chloride 101, Carbon Dioxide 26, Anion Gap 7.0, BUN 21 H, Creatinine 1.0, Estimated GFR (MDRD) 73 L, Glucose 123 H, Calcium 9.4, Total Bilirubin 0.9, AST 17, ALT 13, Alkaline Phosphatase 74, Total Protein 7.1, Albumin 4.1, Globulin 3.0, Albumin/Globulin Ratio 1.4, Lipase 34 10/06/23 19:17: WBC 18.2 H, RBC 4.83, Hgb 13.6 L, Hct 43.3, MCV 89.6, MCH 28.2, MCHC 31.4 L, RDW 15.6 H, Plt Count 255, MPV 10.1, Neut # (Auto) Not Reportable, Lymph # (Auto) Not Reportable, [place] # (Auto) Not Reportable, Eos # (Auto) Not Reportable, Baso # (Auto) Not Reportable, Absolute Nucleated RBC Not Reportable, Total Counted 100, Band Neuts % (Manual) 0, Reactive Lymphs % (Man) 3, Abnorm Lymph % (Manual) 0, Nucleated RBC % Not Reportable, Neutrophils # (Manual) 15.8 H, Lymphocytes # (Manual) 1.3 L, Monocytes # (Manual) 1.1 H, Eosinophils # (Manual) 0.0, Basophils # (Manual) 0.0, Differential Comment MANUAL DIFFERENTIAL, Platelet Estimate NORMAL (130-450,000), Platelet Morphology NORMAL APPEARANCE, RBC Morph Micro Appear NORMAL APPEARANCE Lab results reviewed: Yes Fish Bones: 10/07/23 05:15 10/07/23 05:15 Home Medications and Allergies Home Medications: Ambulatory Orders Finasteride [Proscar] 5 mg PO DAILY 10/06/23 Lisinopril [Zestril] 20 mg PO DAILY 10/06/23 Spironolactone [Aldactone] 25 mg PO DAILY 10/06/23 Tamsulosin [Flomax] 0.4 mg PO DAILY 10/06/23 Active Medications Hydromorphone HCl (Hydromorphone 0.5 Mg/0.5 Ml Syringe) 0.5 mg IVP Q2H PRN PRN Reason: Severe Pain (Level 7-10) Last Admin: 10/07/23 03:16 Dose: 0.5 mg Sodium Chloride (Normal Saline 0.9%) 1,000 mls @ 100 mls/hr IV .Q10H JOEY Last Infusion: 10/07/23 05:40 Dose: 100 mls/hr Piperacillin Sod/Tazobactam (Sod 3.375 gm/ Sodium Chloride) 100 mls @ 25 mls/hr IV Q8H [facility] Last Admin: 10/07/23 03:12 Dose: 25 mls/hr Acetaminophen (Acetaminophen) 1,000 mg in 100 mls @ 400 mls/hr IV Q6HR [facility] Last Infusion: 10/07/23 05:40 Dose: Infused Ondansetron HCl (Ondansetron 4 Mg/2 Ml Vial) 4 mg IVP Q4HR PRN PRN Reason: Nausea / Vomiting Sodium Chloride (Sodium Chloride Flush 0.9% 10 Ml Syringe) 10 ml IVP 0100,0900,1700 [facility] Last Admin: 10/07/23 01:09 Dose: Not Given Sodium Chloride (Sodium Chloride Flush 0.9% 10 Ml Syringe) 10 ml IVP PRN PRN PRN Reason: NEEDED PER PROVIDER ORDERS Finasteride [Proscar] 5 mg PO DAILY 10/06/23 Lisinopril [Zestril] 20 mg PO DAILY 10/06/23 Spironolactone [Aldactone] 25 mg PO DAILY 10/06/23 Tamsulosin [Flomax] 0.4 mg PO DAILY 10/06/23 Allergies/Adverse Reactions: Allergies Allergy/AdvReac Type Severity Reaction Status Date / Time No Known Drug Allergies Allergy Verified 10/06/23 19:02 Anes History & Medical History - Anesthetic History Anesthesia Complications: reports: No previous complications Family history of Anesthesia Complications: Denies Family history of Malignant Hyperthermia: Denies - Medical History Cardiovascular: reports: Hypertension Pulmonary: reports: None Gastrointestinal: reports: None Urinary: reports: Benign prostate hypertrophy, Indwelling catheter, Other Neuro: reports: None Musculoskeletal: reports: None Endocrine/Autoimmune: reports: None Blood Disorders: reports: None Skin: reports: Psoriasis Smoking Status: Never smoker - Surgical History Eyes Ears Nose Throat (EENT): reports: Tonsil/Adenoidectomy Urologic: reports: Ureterolithotomy (stones) (clot removal) Exam General: Alert, Oriented x3, Cooperative Dental: WNL Mouth Openin Fingerbreadth Neck Mobility: Normal Mallampati classification: II Thyromental Distance: 4-6 cm Respiratory: Lungs clear, Normal breath sounds, No respiratory distress Cardiovascular: Regular rate Neurological: Normal speech Mental/Cognitive Status: Alert/Oriented X3, Normal for patient Cognitive Status: Within normal limits Plan Anesthesia Type: General Consent for Procedure(s) Verified and Reviewed: Yes Code Status: Attempt Resuscitation ASA classification: 2-Mild systemic disease Is this case an emergency?: Yes
[2023-10-07] MEDS ORDERED: ATROPINE ABBOJECT 1 MG/10 ML SYRINGE IVP PRN (07:05)
[2023-10-07] MEDS ORDERED: LIDOCAINE 1%-EPI 1:100000 20 ML MDV ONE (07:05)
[2023-10-07] MEDS ORDERED: ONDANSETRON 4 MG/2 ML VIAL IVP PRN (07:05)
[2023-10-07] MEDS ORDERED: iohexoL-240 10 ML VIAL IVP ONE ×2 (07:05→09:11)
[2023-10-07] MEDS ORDERED: NALOXONE 0.4 MG/ML VIAL IVP PRN (07:05)
[2023-10-07] MEDS ORDERED: BUPIVACAINE 0.25% PF 30 ML VIAL ONE (07:05)
[2023-10-07] MEDS ORDERED: HYDROmorphone 0.5 MG/0.5 ML SYRINGE IVP PRN (07:05)
[2023-10-07] MEDS ORDERED: MORPHINE 2 MG/ML CARPUJECT IVP PRN (07:05)
[2023-10-07] MEDS ORDERED: ePHEDrine 50 MG/ML VIAL IVP PRN (07:05)
[2023-10-07] MEDS ORDERED: fentaNYL 100 MCG/2 ML VIAL IVP PRN (07:05)
[2023-10-07] MEDS ORDERED: METOCLOPRAMIDE 10 MG/2 ML VIAL IVP PRN (07:05)
--- NOTE | 2023-10-07 07:28 | PROVIDER PROGRESS NOTE ---
Subjective - General Admit Date: 10/06/23 - Other Other Information/Narrative: Observed overnight on Zosyn in anticipation of lap mattie this AM. RUQ pain slightly worse, no n/v overnight. O2 sats ~90 and HR transiently up to 118 with pain, but now back to 70s with pain medicine; o/w normotensive and afebrile. Objective - Patient Data Reviewed Vital Signs: Yes Vital Signs: Vital Signs x48h Temp Pulse Pulse Resp BP BP Pulse Ox 10/07/23 05:00 36.6 C 75 18 117/71 91 L 10/07/23 00:35 36.8 C 16 126/75 92 10/07/23 00:00 79 16 105/74 95 Weight: Weight 10/05/23 10/06/23 10/07/23 23:59 23:59 23:59 Weight (kg) 55.338 kg 98.5 kg Intake & Output: Intake and Output Totals x24h 10/05/23 10/06/23 10/07/23 23:59 23:59 23:59 Intake Total 100 1630 Balance 100 1630 - Lab Results Lab Results: 10/07/23 05:15 10/07/23 05:15 Other Lab Results: Lab Results x24hrs 10/07/23 10/07/23 10/07/23 Range/Units 05:27 05:15 05:15 WBC 18.2 H (4.8-10.8) x10^3/uL RBC 4.66 L (4.70-6.10) 10^6/uL Hgb 13.2 L (14.0-18.0) g/dL Hct 42.8 (42.0-52.0) % MCV 91.8 (80.0-94.0) fL MCH 28.3 (27.0-31.0) pg MCHC 30.8 L (32.0-36.0) g/dL RDW 15.9 H (12.0-15.0) % Plt Count 226 (130-450) 10^3/uL MPV 10.3 (7.4-11.4) fL Neut # (Auto) 15.0 H Lymph # (Auto) 1.1 L [place] # (Auto) 1.9 H Eos # (Auto) 0.1 Baso # (Auto) 0.0 Absolute Nucleated RBC 0.00 Total Counted Band Neuts % (Manual) Not Reportable (0 - 10) % Reactive Lymphs % (Man) % Abnorm Lymph % (Manual) Not Reportable % Nucleated RBC % 0.0 Neutrophils # (Manual) Not Reportable (1.5-6.6) 10^3/uL Lymphocytes # (Manual) Not Reportable (1.5-3.5) 10^3/uL Monocytes # (Manual) Not Reportable (0.0-1.0) 10^3/uL Eosinophils # (Manual) Not Reportable (0-0.7) 10^3/uL Basophils # (Manual) Not Reportable (0-0.1) 10^3/uL Differential Comment MANUAL=AUTO DIFF Platelet Estimate NORMAL (130-450,000) (NORMAL) Platelet Morphology (NORMAL) RBC Morph Micro Appear NORMAL APPEARANCE (NORMAL) Sodium 134 L (135-145) mmol/L Potassium 4.1 (3.5-4.5) mmol/L Chloride 104 (101-111) mmol/L Carbon Dioxide 26 (21-32) mmol/L Anion Gap 4.0 L (6-13) BUN 20 (6-20) mg/dL Creatinine 1.0 (0.6-1.3) mg/dL Estimated GFR (MDRD) 73 L (>89) Glucose 120 H (74-104) mg/dL Calcium 8.9 (8.5-10.3) mg/dL Total Bilirubin 1.6 H (0.2-1.0) mg/dL AST 55 H (10-42) IU/L ALT 46 (10-60) IU/L Alkaline Phosphatase 82 (42-121) IU/L Total Protein 6.5 (6.4-8.9) g/dL Albumin 3.6 (3.2-5.5) g/dL Globulin 2.9 (2.1-4.2) g/dL Albumin/Globulin Ratio 1.2 (1.0-2.2) Lipase (11-82) U/L Urine Color YELLOW Urine Clarity SL. CLOUDY (CLEAR) Urine pH 5.5 (5.0-7.5) PH Ur Specific [place] >=1.030 H (1.002-1.030) Urine Protein 100 H (NEGATIVE) mg/dL Urine Glucose (UA) NEGATIVE (NEGATIVE) mg/dL Urine Ketones NEGATIVE (NEGATIVE) mg/dL Urine Occult Blood MODERATE H (NEGATIVE) Urine Nitrite POSITIVE H (NEGATIVE) Urine Bilirubin NEGATIVE (NEGATIVE) Urine Urobilinogen 1 (NORMAL) (NORMAL) E.U./dL Ur Leukocyte Esterase SMALL H (NEGATIVE) Urine RBC 11-25 H (0-5) /HPF Urine WBC >25 H (0-3) /HPF Ur Squamous Epith Cells NONE SEEN (<= Few) Urine Bacteria Moderate H (None Seen) /HPF Ur Microscopic Review INDICATED Urine Culture Comments INDICATED 10/06/23 10/06/23 Range/Units 19:17 19:17 WBC 18.2 H (4.8-10.8) x10^3/uL RBC 4.83 (4.70-6.10) 10^6/uL Hgb 13.6 L (14.0-18.0) g/dL Hct 43.3 (42.0-52.0) % MCV 89.6 (80.0-94.0) fL MCH 28.2 (27.0-31.0) pg MCHC 31.4 L (32.0-36.0) g/dL RDW 15.6 H (12.0-15.0) % Plt Count 255 (130-450) 10^3/uL MPV 10.1 (7.4-11.4) fL Neut # (Auto) Not Reportable Lymph # (Auto) Not Reportable [place] # (Auto) Not Reportable Eos # (Auto) Not Reportable Baso # (Auto) Not Reportable Absolute Nucleated RBC Not Reportable Total Counted 100 Band Neuts % (Manual) 0 (0 - 10) % Reactive Lymphs % (Man) 3 % Abnorm Lymph % (Manual) 0 % Nucleated RBC % Not Reportable Neutrophils # (Manual) 15.8 H (1.5-6.6) 10^3/uL Lymphocytes # (Manual) 1.3 L (1.5-3.5) 10^3/uL Monocytes # (Manual) 1.1 H (0.0-1.0) 10^3/uL Eosinophils # (Manual) 0.0 (0-0.7) 10^3/uL Basophils # (Manual) 0.0 (0-0.1) 10^3/uL Differential Comment MANUAL DIFFERENTIAL Platelet Estimate NORMAL (130-450,000) (NORMAL) Platelet Morphology NORMAL APPEARANCE (NORMAL) RBC Morph Micro Appear NORMAL APPEARANCE (NORMAL) Sodium 134 L (135-145) mmol/L Potassium 4.4 (3.5-4.5) mmol/L Chloride 101 (101-111) mmol/L Carbon Dioxide 26 (21-32) mmol/L Anion Gap 7.0 (6-13) BUN 21 H (6-20) mg/dL Creatinine 1.0 (0.6-1.3) mg/dL Estimated GFR (MDRD) 73 L (>89) Glucose 123 H (74-104) mg/dL Calcium 9.4 (8.5-10.3) mg/dL Total Bilirubin 0.9 (0.2-1.0) mg/dL AST 17 (10-42) IU/L ALT 13 (10-60) IU/L Alkaline Phosphatase 74 (42-121) IU/L Total Protein 7.1 (6.4-8.9) g/dL Albumin 4.1 (3.2-5.5) g/dL Globulin 3.0 (2.1-4.2) g/dL Albumin/Globulin Ratio 1.4 (1.0-2.2) Lipase 34 (11-82) U/L Urine Color Urine Clarity (CLEAR) Urine pH (5.0-7.5) PH Ur Specific [place] (1.002-1.030) Urine Protein (NEGATIVE) mg/dL Urine Glucose (UA) (NEGATIVE) mg/dL Urine Ketones (NEGATIVE) mg/dL Urine Occult Blood (NEGATIVE) Urine Nitrite (NEGATIVE) Urine Bilirubin (NEGATIVE) Urine Urobilinogen (NORMAL) E.U./dL Ur Leukocyte Esterase (NEGATIVE) Urine RBC (0-5) /HPF Urine WBC (0-3) /HPF Ur Squamous Epith Cells (<= Few) Urine Bacteria (None Seen) /HPF Ur Microscopic Review Urine Culture Comments - Current Medications Current Medications: Current Medications Generic Name Dose Route Start Last Admin Trade Name Freq PRN Reason Stop Dose Admin Hydromorphone HCl 0.5 mg 10/06/23 22:40 10/07/23 03:16 Hydromorphone 0.5 Mg/0.5 Ml Syringe IVP 0.5 mg Q2H PRN Administration Severe Pain (Level 7-10) Sodium Chloride 1,000 mls @ 100 mls/hr 10/06/23 23:00 10/07/23 05:40 Normal Saline 0.9% IV 100 mls/hr .Q10H JOEY Infusion Piperacillin Sod/Tazobactam 100 mls @ 25 mls/hr 10/07/23 03:00 10/07/23 07:09 Sod 3.375 gm/ Sodium Chloride IV Infused Q8H JOEY Infusion Acetaminophen 1,000 mg in 100 mls @ 400 mls/hr 10/07/23 00:00 10/07/23 05:40 Acetaminophen IV Infused Q6HR JOEY Infusion Sodium Chloride 10 ml 10/07/23 01:00 10/07/23 01:09 Sodium Chloride Flush 0.9% 10 Ml Syringe IVP Not Given 0100,0900,1700 [facility] - Physical Exam General Appearance: positive: No acute distress, Alert Eyes Bilateral: positive: Normal inspection, PERRL ENT: positive: ENT inspection nml, Pharynx nml Neck: positive: Nml inspection, No JVD Respiratory: positive: Chest non-tender, No respiratory distress, Breath sounds nml Cardiovascular: positive: Regular rate & rhythm Abdomen: positive: No distention, Tenderness (RUQ ttp with + murpheys) Back: positive: Nml inspection Skin: positive: Color nml, No rash, Warm, Dry Extremities: positive: Non-tender, Full ROM, Nml appearance Neurologic/Psychiatric: positive: Oriented x3, Mood/affect nml ABX Reporting Has patient been on IV antibiotics over the past 48 hours?: Yes Impression/Plan - Problem List Problem List: Acute calculous cholecystitis. Scheduled for laparoscopic cholecystectomy this AM. WBC stable at 18, Tb up to 1.6 from 0.9, thus will do IOC to assess for choledocholithiasis. - continue zosyn until OR - lap mattie this morning. Daniela Smyth DO FACS General Surgery
[2023-10-07] MEDS ORDERED: ePHEDrine 50 MG/ML VIAL IVP ONE (07:48)
[2023-10-07] MEDS ORDERED: SODIUM CHLORIDE 0.9% 10 ML VIAL IVP ONE (07:48)
[2023-10-07] MEDS ORDERED: DEXAMETHASONE 4 MG/ML VIAL ONE (07:51)
[2023-10-07] MEDS ORDERED: ONDANSETRON 4 MG/2 ML VIAL ONE (07:51)
[2023-10-07] MEDS ORDERED: LACTATED RINGERS 1,000 ML IV SCH (08:00)
[2023-10-07] MEDS: BUPIVACAINE 0.25% PF 30 ML VIAL SUBQ ONE (08:22)
[2023-10-07] MEDS: LIDOCAINE 1%-EPI 1:100000 20 ML MDV SUBQ ONE (08:22)
[2023-10-07] MEDS: iohexoL-240 10 ML VIAL IVP ONE (09:00)
[2023-10-07] MEDS ORDERED: SUGAMMADEX 200 MG/2 ML VIAL IVP ONE (09:45)
[2023-10-07] MEDS ORDERED: KETOROLAC 30 MG/ML VIAL ONE (10:04)
[2023-10-07] MEDS: LACTATED RINGERS 800 ML IV ONE ×2 (10:55→11:39)
[2023-10-07] MEDS ORDERED: SODIUM CHLORIDE FLUSH 0.9% 10 ML SYRINGE IVP PRN (11:07)
[2023-10-07] MEDS ORDERED: oxyCODONE 5 MG TABLET PO PRN (11:07)
[2023-10-07] MEDS ORDERED: KETOROLAC 15 MG/ML VIAL IVP PRN (11:07)
--- NOTE | 2023-10-07 11:57 | OPERATIVE REPORT ---
Operative Report - General Admit Date: 10/07/23 Planned Procedure: laparoscpic cholecystectomy with intraoperative cholangiogram Pre-Op Diagnosis: acute calculous cholecystitis Procedure Performed: laparoscopic cholecystectomy with intraoperative cholangiogram Post Op Diagnosis: acute on chronic calculous cholecystitis; gangrenous cholecystitis - Procedure Note Primary Surgeon: Daniela Smyth DO Anesthesia Provider: Efrem Muñoz CRNA Anesthesia Technique: General ET tube Pathology: gallbladder and contents IV Fluids (mL): 2,300 Estimated Blood Loss (mL): 30 Urine Output (mL): 300 Indications: 73yoM with 24hrs RUQ pain, normal vitals, WBC 18, RUQUS c/w acute cholecystitis, and uptrending total bilirubin from 0.9 to 1.6 Findings: acute on chronic cholecystitis, innumerable small black stones, necrotic gallbladder. Intraoperative cholangiogram revealed occluded cystic duct, visualization of the common duct not achieved. Complications: none - Other Other Information/Narrative: Patient was brought back to the operating room where universal protocol was observed throughout. He was placed supine on the operating room table with the left arm tucked. General anesthesia with an endotracheal tube was induced by the anesthesia service. The abdomen was prepped and draped in standard sterile fashion. A timeout was performed with all members of the team in agreement. Local anesthetic 1% lidocaine with epinephrine mixed with Marcaine was injected at the supraumbilical location where a transverse incision was made sharply through the skin. the subcutaneous tissues were divided and the fascia was divided vertically with a scalpel the peritoneal cavity was entered bluntly with a Jayleen clamp. The abdomen was insufflated with CO2 gas to pressure 15 mmHg which the patient tolerated well. A laparoscope was inserted into the abdomen there was no evidence of any injury upon entry under direct visualization. 3 additional 5 mm trocars were placed in the epigastric and right subcostal positions under direct visualization. The gallbladder was seen to be tensely distended with patchy wall necrosis. The laparoscopic aspiration needle was used to aspirate 60cc of thick black bile from the gallbladder. The gallbladder fundus was then grasped and retracted cephalad over the edge of the liver. The infundibulum of the gallbladder was retracted laterally. The peritoneum was scored with Bovie electrocautery, revealing a thick rind on the wall greater than 5mm thick. Blunt dissection and electrocautery were used to expose the cystic triangle. A combination of blunt dissection and Bovie electrocautery was used to obtain the critical view of safety such that the bottom third of the gallbladder was free of fat, there were 2 and only 2 structures seen entering the gallbladder and the liver could be seen through the cystic triangle. The cystic artery was triply clipped with 2 clips on the stay side, and the cystic duct was clipped towards the gallbladder. A cystic ductotomy was then made sharply, a ureteral catheter was inserted into the duct and secured with an arteaga clamp. Contrast was injected to attempt an intraoperative cholangiogram. Ultimately contrast was unable to be flushed through the cystic duct, as the cyst duct appeared completely occluded with small stones that were impacted and unable to be milked free of the duct. Further attempts at obtaining a cholangiogram were deemed futile. The distal cystic duct was then doubly clipped. The duct and artery were then both divided between the clips. The cystic duct stump was reinforced with an 0 PDS endoloop below the clips. The gallbladder was then taken off the cystic plate using Bovie electrocautery and placed into an Endo Catch bag and removed through the umbilical incision. Innumerable small black stones were spilled from the gallbladder, which had diffuse areas of necrotic wall circumferential. The cystic plate and hepatic fossa were inspected, Bovie electrocautery was used to achieve hemostasis. In order to extract the spilled small stones, the epigastric trocar was upsized to a 11mm port and the 10mm suction automatic fabric cutter was used to irrigate and suction both the fluid and stones from the RUQ. The irrigant returned clear and the vast majority of small stones were felt to be retrieved. The clips and endoloop were visualized to be in good position at the conclusion of the case. The epigastric port site was closed with 0 Vicryl suture using the salina aysha device. The laparoscope and trocars were removed under direct visualization and the abdomen was allowed to desufflate. The umbilical fascia was closed with 0 Vicryl [id number] suture x3. The incisions were irrigated with clean normal saline. The skin at all incisions was closed with 4-0 Monocryl subcutaneous tissue. A dressing of Steri-Strips followed by gauze and Tegaderm was applied. Patient was awoken from general anesthesia. He was transferred to the PACU in good condition. There were no complications. All sponge and needle counts were correct. Daniela Tulk DO FACS General surgeon
--- NOTE | 2023-10-07 12:10 | ANESTHESIA POST OP EVALUATION ---
Anesthesia Post Eval - Post Anesthesia Eval Vitals: Last Vital Signs Temp 36.7 C 10/07/23 11:49 Pulse 99 10/07/23 11:49 Resp 18 10/07/23 11:49 BP 126/76 10/07/23 11:49 Pulse Ox 93 10/07/23 11:49 O2 Flow Rate 6 10/07/23 11:49 CV Function Including HR & BP: Stable Pain Control: Satisfactory Nausea & Vomiting: Negative Mental Status: Baseline Respiratory Status: Airway Patent Hydration Status: Satisfactory Anesthesia Complications: None
--- NOTE | 2023-10-07 13:37 | PHARMACY PROGRESS NOTE ---
- Best Possible Medication History Admit Date and Time: 10/07/23 1107 Processed by: Pharmacy Medications reviewed in ED?: No Medication History completed: Yes Patient Interview: Completed Secondary Source(s): Insurance records As the person ultimately responsible for medication therapy, providers are able to order a medication from an existing home medication list in [facility] via the "Reconcile Routine" prior to Confirmation of that medication by high school learning support teacher. Such practice is discouraged except when the physician, in their clinical judgment, deems that a medical need exists for a medication without regard to previous use.
[2023-10-07] MEDS: TAMSULOSIN 0.4 MG CAPSULE PO SCH (17:40)
[2023-10-07] MEDS: CALCIUM CARBONATE CHEW 500 MG TABLET PO PRN (20:23)
[2023-10-08 06:39] LABS: BASOPHILS % (AUTO) 0.1 %; EOSINOPHILS % (AUTO) 0.1 %; HCT - HEMATOCRIT 37.1 % (42.0-52.0); HGB - HEMOGLOBIN 11.3 g/dL (14.0-18.0); LYMPHOCYTES % (AUTO) 5.3 %; MEAN CORPUSCULAR HEMOGLOBIN 28.3 pg (27.0-31.0); MEAN CORPUSCULAR HGB CONC 30.5 g/dL (32.0-36.0); MEAN CORPUSCULAR VOLUME 92.8 fL (80.0-94.0); MEAN PLATELET VOLUME 10.6 fL (7.4-11.4); MONOCYTES # (AUTO) 1.6 10^3/uL (0.0-1.0); MONOCYTES % (AUTO) 8.4 %; NEUTROPHILS # (AUTO) 15.9 10^3/uL (1.5-6.6); NEUTROPHILS % (AUTO) 85.2 %; PLT - PLATELET COUNT 207 10^3/uL (130-450); RED CELL DISTRIBUTION WIDTH 16.2 % (12.0-15.0); WHITE BLOOD COUNT 18.6 x10^3/uL (4.8-10.8)
[2023-10-08 06:51] LABS: ALBUMIN/GLOBULIN RATIO 1.1 (1.0-2.2); BILIRUBIN,TOTAL 0.6 mg/dL (0.2-1.0); CALCIUM 8.1 mg/dL (8.5-10.3); CREATININE 1.1 mg/dL (0.6-1.3); TOTAL PROTEIN 5.7 g/dL (6.4-8.9)
[2023-10-08 06:58] LABS: DIFFERENTIAL COMMENT MANUAL=AUTO DIFF; PLATELET ESTIMATE, MANUAL NORMAL (130-450,000) (NORMAL); RBC MORPHOLOGY (MULTIPLE) NORMAL APPEARANCE (NORMAL)
[2023-10-08] MEDS: SPIRONOLACTONE 25 MG TABLET PO SCH (08:43)
[2023-10-08] MEDS: lisinopriL 20 MG TABLET PO SCH (08:43)
[2023-10-08] MEDS: FINASTERIDE 5 MG TABLET PO SCH (08:43)
--- NOTE | 2023-10-08 10:56 | PROVIDER PROGRESS NOTE ---
Subjective - General Admit Date: 10/07/23 Procedure Date: 10/07/23 Post Op Days: 1 Procedure Performed: lap mattie/IOC - Review of Systems Wound/Incisions: positive: Dressing dry and intact - Other Other Information/Narrative: POD1 lap mattie/IOC, PHYLLIS overnight. HD normal, afebrile. Only pain is at epigastric incision (10mm port closed with 0 vicryl). Tolerating clears without nausea, complains of mild reflux. Has ambulated within room. Objective - Patient Data Reviewed Vital Signs: Yes Vital Signs: Vital Signs x48h Temp Pulse Resp BP Pulse Ox 10/08/23 05:00 36.8 C 70 18 123/69 94 Weight: Weight 10/06/23 10/07/23 10/08/23 23:59 23:59 23:59 Weight (kg) 55.338 kg 98.5 kg Intake & Output: Intake and Output Totals x24h 10/06/23 10/07/23 10/08/23 23:59 23:59 23:59 Intake Total 100 5331.667 1943.333 Output Total 300 450 Balance 100 5031.667 1493.333 - Lab Results Lab Results: 10/08/23 06:19 10/08/23 06:19 Other Lab Results: Lab Results x24hrs 10/08/23 10/08/23 Range/Units 06:19 06:19 WBC 18.6 H (4.8-10.8) x10^3/uL RBC 4.00 L (4.70-6.10) 10^6/uL Hgb 11.3 L (14.0-18.0) g/dL Hct 37.1 L (42.0-52.0) % MCV 92.8 (80.0-94.0) fL MCH 28.3 (27.0-31.0) pg MCHC 30.5 L (32.0-36.0) g/dL RDW 16.2 H (12.0-15.0) % Plt Count 207 (130-450) 10^3/uL MPV 10.6 (7.4-11.4) fL Neut # (Auto) 15.9 H (1.5-6.6) 10^3/uL Lymph # (Auto) 1.0 L (1.5-3.5) 10^3/uL [place] # (Auto) 1.6 H (0.0-1.0) 10^3/uL Eos # (Auto) 0.0 (0.0-0.7) 10^3/uL Baso # (Auto) 0.0 (0.0-0.1) 10^3/uL Absolute Nucleated RBC 0.00 x10^3/uL Band Neuts % (Manual) Not Reportable Abnorm Lymph % (Manual) Not Reportable Nucleated RBC % 0.0 /100WBC Neutrophils # (Manual) Not Reportable Lymphocytes # (Manual) Not Reportable Monocytes # (Manual) Not Reportable Eosinophils # (Manual) Not Reportable Basophils # (Manual) Not Reportable Differential Comment MANUAL=AUTO DIFF Platelet Estimate NORMAL (130-450,000) (NORMAL) RBC Morph Micro Appear NORMAL APPEARANCE (NORMAL) Sodium 134 L (135-145) mmol/L Potassium 4.0 (3.5-4.5) mmol/L Chloride 105 (101-111) mmol/L Carbon Dioxide 23 (21-32) mmol/L Anion Gap 6.0 (6-13) BUN 24 H (6-20) mg/dL Creatinine 1.1 (0.6-1.3) mg/dL Estimated GFR (MDRD) 65 L (>89) Glucose 114 H (74-104) mg/dL Calcium 8.1 L (8.5-10.3) mg/dL Total Bilirubin 0.6 (0.2-1.0) mg/dL AST 29 (10-42) IU/L ALT 43 (10-60) IU/L Alkaline Phosphatase 65 (42-121) IU/L Total Protein 5.7 L (6.4-8.9) g/dL Albumin 3.0 L (3.2-5.5) g/dL Globulin 2.7 (2.1-4.2) g/dL Albumin/Globulin Ratio 1.1 (1.0-2.2) - Current Medications Current Medications: Current Medications Generic Name Dose Route Start Last Admin Trade Name Freq PRN Reason Stop Dose Admin Calcium Carbonate/Glycine 500 mg 10/07/23 20:06 10/07/23 20:23 Calcium Carbonate Chew 500 Mg Tablet PO 500 mg BID PRN Administration INDIGESTION Finasteride 5 mg 10/08/23 09:00 10/08/23 08:43 Finasteride 5 Mg Tablet PO 5 mg DAILY JOEY Administration Hydromorphone HCl 0.5 mg 10/06/23 22:40 10/08/23 07:55 Hydromorphone 0.5 Mg/0.5 Ml Syringe IVP 0.5 mg Q2H PRN Administration Severe Pain (Level 7-10) Sodium Chloride 1,000 mls @ 100 mls/hr 10/06/23 23:00 10/08/23 06:18 Normal Saline 0.9% IV 100 mls/hr .Q10H JOEY Infusion Acetaminophen 1,000 mg in 100 mls @ 400 mls/hr 10/07/23 00:00 10/08/23 05:44 Acetaminophen IV Infused Q6HR JOEY Infusion Piperacillin Sod/Tazobactam 100 mls @ 200 mls/hr 10/07/23 12:00 10/08/23 06:18 Sod 3.375 gm/ Sodium Chloride IV Infused Q6HR JOEY Infusion Lisinopril 20 mg 10/08/23 09:00 10/08/23 08:43 Lisinopril 20 Mg Tablet PO 20 mg DAILY JOEY Administration Sodium Chloride 10 ml 10/07/23 01:00 10/08/23 08:43 Sodium Chloride Flush 0.9% 10 Ml Syringe IVP 10 ml 0100,0900,1700 JOEY Administration Sodium Chloride 10 ml 10/07/23 17:00 10/08/23 00:22 Sodium Chloride Flush 0.9% 10 Ml Syringe IVP Not Given 0100,0900,1700 [facility] Spironolactone 25 mg 10/08/23 09:00 10/08/23 08:43 Spironolactone 25 Mg Tablet PO 25 mg DAILY JOEY Administration Tamsulosin HCl 0.4 mg 10/07/23 17:00 10/07/23 17:40 Tamsulosin 0.4 Mg Capsule PO 0.4 mg QDDINNER [facility] Administration - Physical Exam Wound/Incisions: positive: Healing well, Dressing dry and intact, No drainage General Appearance: positive: No acute distress, Alert Eyes Bilateral: positive: Normal inspection, PERRL ENT: positive: ENT inspection nml, Pharynx nml Neck: positive: Nml inspection, No JVD Respiratory: positive: Chest non-tender, No respiratory distress, Breath sounds nml Cardiovascular: positive: Regular rate & rhythm Abdomen: positive: No distention, Tenderness (mild ttp around epigastric incision, otherwise no ttp), Other (gauze and tegederm at umbilical and epigast carlita incisions, steristrips at others, all CDI) Back: positive: Nml inspection Skin: positive: Color nml, No rash, Warm, Dry Extremities: positive: Non-tender, Full ROM, Nml appearance Neurologic/Psychiatric: positive: Oriented x3, Mood/affect nml ABX Reporting Has patient been on IV antibiotics over the past 48 hours?: Yes Impression/Plan - Problem List Problem List: 73yoM POD1 s/p laparoscopic cholecystectomy with intraoperative cholangiogram for what was found to be acute gangrenous cholecystitis with innumerable small stones (cholelithiasis). IOC revealed occluded cystic duct and CBD was unable to be visualized, however bilirubin has normalized from 1.6 to 0.6 today (transaminases normal) and patient tolerating clears and thus suspicion for retained stones is low (furthermore, patients stones were ~2-3mm small stones and so if any were in CBD they should pass spontaneously). Overall recovering well without apparent complications. - advance to regular diet - PO motrin, tylenol, prn PO oxycodone, PRN IV dilaudid - complete abx today (24hrs postop) given source control complete - trend CBC/CMP tomorrow - heparin for dvt ppx - PO protonix daily - continue home meds - continue chronic indwelling delgado - SCDs, incentive spirometer - Ambulate in hallways TID Anticipate DC home tomorrow Daniela Smyth DO FACS General Surgery
[2023-10-08] MEDS: PANTOPRAZOLE 40 MG TABLET PO SCH (11:38)
[2023-10-08] MEDS: IBUPROFEN 600 MG TABLET PO SCH (11:38)
[2023-10-08] MEDS: ACETAMINOPHEN 500 MG TABLET PO SCH (12:19)
[2023-10-08] MEDS: HEPARIN 5,000 UNIT/ML VIAL SUBQ SCH (14:12)
[2023-10-08] MEDS: BENZONATATE 100 MG CAPSULE PO PRN (21:51)
[2023-10-09 05:47] LABS: BASOPHILS % (AUTO) 0.2 %; EOSINOPHILS # (AUTO) 0.2 10^3/uL (0.0-0.7); EOSINOPHILS % (AUTO) 1.8 %; HCT - HEMATOCRIT 33.2 % (42.0-52.0); HGB - HEMOGLOBIN 10.3 g/dL (14.0-18.0); LYMPHOCYTES # (AUTO) 1.5 10^3/uL (1.5-3.5); LYMPHOCYTES % (AUTO) 12.7 %; MEAN CORPUSCULAR HEMOGLOBIN 28.3 pg (27.0-31.0); MEAN CORPUSCULAR VOLUME 91.2 fL (80.0-94.0); MEAN PLATELET VOLUME 10.6 fL (7.4-11.4); MONOCYTES % (AUTO) 8.9 %; NEUTROPHILS # (AUTO) 8.7 10^3/uL (1.5-6.6); PLT - PLATELET COUNT 212 10^3/uL (130-450); RED BLOOD COUNT 3.64 10^6/uL (4.70-6.10); RED CELL DISTRIBUTION WIDTH 16.1 % (12.0-15.0); WHITE BLOOD COUNT 11.4 x10^3/uL (4.8-10.8)
[2023-10-09 06:08] LABS: ALBUMIN 2.7 g/dL (3.2-5.5); ALBUMIN/GLOBULIN RATIO 1.1 (1.0-2.2); BILIRUBIN,TOTAL 0.5 mg/dL (0.2-1.0); CALCIUM 7.8 mg/dL (8.5-10.3); CREATININE 0.9 mg/dL (0.6-1.3); POTASSIUM 3.8 mmol/L (3.5-4.5); TOTAL PROTEIN 5.2 g/dL (6.4-8.9)
[2023-10-09] MEDS: polyethylene glycoL 3350 17 GM PACKET PO ONE (09:55)
--- NOTE | 2023-10-09 10:15 | DISCHARGE SUMMARY ---
"Discharge Summary Admit Date: 10/06/23 Discharge Date: 10/09/23 Discharging Provider: Daniela Smyth Code Status: Attempt Resuscitation Condition at Discharge: Good Discharge Disposition: 01 Home, Self Care - DIAGNOSES Admission Diagnoses: acute calculous cholecystitis Discharge Diagnoses with Status of Each Condition: acute gangrenous calculous cholecystitis - resolved - CONSULTS | PROCEDURES Procedures: laparoscopic cholecystectomy with intraoperative cholangiogram - HOSPITAL COURSE Hospital Course: The patient was admitted to the hospital on the evening of 10/06/23 with acute cholecystitis. He was taken to the operating room the next morning on 10/06 for laparoscopic cholangiogram. An IOC was planned given the rise in his bilirubin from 0.9 to 1.6 between admission and surgery. Intraoperatively he was found to have acute gangrenous cholecystitis; innumerable small stones were seen/spilled/suctioned from the abdomen; the cholangiogram revealed an occluded cystic duct and the common bile duct was unable to be visualized. Postoperatively he tolerated PO and his diet was advanced to regular. He remained HD normal and afebrile, he was able to ambulate at baseline, his chronic indwelling catheter was kept in place. Postoperatively his bilirubin normalized, transaminases remained normal, and WBC downtrended from 18 to 11. He was discharged to home in good condition on POD2. - ALLERGIES Allergies/Adverse Reactions: Allergies Allergy/AdvReac Type Severity Reaction Status Date / Time No Known Drug Allergies Allergy Verified 10/07/23 08:38 - MEDICATIONS Home Medications: Ambulatory Orders Medication Instructions Recorded Confirmed Finasteride [Proscar] 5 mg PO DAILY 10/06/23 10/07/23 Lisinopril [Zestril] 20 mg PO BID 10/06/23 10/07/23 Spironolactone [Aldactone] 25 mg PO BID 10/06/23 10/07/23 Tamsulosin [Flomax] 0.4 mg PO DAILY 10/06/23 10/07/23 Rosuvastatin Calcium [Crestor] 20 mg PO HS 10/07/23 10/07/23 oxyBUTYnin chloride [Oxybutynin 5 mg PO DAILY 10/07/23 10/07/23 Chloride ER] Acetaminophen [Tylenol] 1,000 mg PO Q8HR PRN 14 Days #30 10/09/23 tablet Ibuprofen [Motrin] 1 tablet PO Q8H PRN #30 tablet 10/09/23 oxyCODONE [Roxicodone] 5 mg PO Q4-6H PRN #5 tablet 10/09/23 polyethylene glycoL 3350 [Miralax] 17 gm PO DAILY PRN #5 packet 10/09/23 - PHYSICAL EXAM AT DISCHARGE General Appearance: positive: No acute distress, Alert Eyes Bilateral: positive: Normal inspection ENT: positive: ENT inspection nml Neck: positive: Nml inspection Respiratory: positive: Chest non-tender, No respiratory distress Cardiovascular: positive: Regular rate & rhythm Abdomen: positive: Non-tender (mild periincisional ttp) Skin: positive: Color nml Extremities: positive: Non-tender, Full ROM Neurologic/Psychiatric: positive: Oriented x3 - LABS Result Diagrams: 10/09/23 05:25 10/09/23 05:25 - SEPSIS Current Stage of Sepsis: Ruled out - FOLLOW UP Follow Up: 2wks general surgery - TIME SPENT Time Spent in Discharge (Minutes): 30"
[2023-10-09 10:41] VITALS: BP 134/69; O2SAT 95
--- NOTE | 2023-10-11 09:40 | XRAY Report ---
PROCEDURE: OR Cholangiogram INDICATIONS: CHOLANGIOGRAM-LAPARSCOPIC DANTE TECHNIQUE: The cystic duct is cannulated by the surgeon. Contrast is instilled into the cystic duct. 1.4 seconds. COMPARISON: Abdominal ultrasound 10/06/2023.. FINDINGS: Contrast flows through the cystic duct. No filling defect is identified. IMPRESSION: Intraoperative guidance provided. Reviewed by: Sanya Dupont MD on 10/11/2023 9:39 AM PDT Approved by: Sanya Dupont MD on 10/11/2023 9:39 AM PDT Station ID: [id number]
== END 2023-10-09 11:30 | disposition home or self-care (01) | DRG 419 ==
LOC: ED 18:51 → SDS 22:15 → MS2 22:40 → OBSVTOIN 10-07 11:07
PROVIDERS: ADMIT Surgery; ATTEND Surgery
PROC: BF03YZZ Plain Radiography of Gallbladder and Bile Ducts using Other Contrast (ICD-10-PCS; 2023-10-07)
PROC: 0FT44ZZ Resection of Gallbladder, Percutaneous Endoscopic Approach (ICD-10-PCS; principal; 2023-10-07 07:30)
DX: K80.12 Calculus of gallbladder with acute and chronic cholecystitis without obstruction (principal); K80.00 Calculus of gallbladder with acute cholecystitis without obstruction; K82.A1 Gangrene of gallbladder in cholecystitis; I10 Essential (primary) hypertension; N40.0 Benign prostatic hyperplasia without lower urinary tract symptoms; Z79.899 Other long term (current) drug therapy; Z87.891 Personal history of nicotine dependence
CPT/HCPCS: 36415; 74300; 76705; 80053; 81001; 83690; 85025; 87077; 87086; 87181; 93005; 96365; 96366; 96375; 96376; 99284; 99285; A9270; C1758; G0378; J0131; J1170; J7120; Q9966; 81003

== ENCOUNTER 2023-10-18 10:48 | Inpatient (IN) | payer MEDICARE ==
--- NOTE | 2023-10-18 11:15 | ED Physician Documentation ---
History of Present Illness - Stated complaint Stated Complaint: CP - Chief complaint Chief Complaint: Cardiac - History obtained from History obtained from: Patient - Additonal information Additional information: Patient is a 73-year-old male with recent history of a cholecystectomy this month presenting for evaluation of epigastric lower chest pain starting at 6 PM last night with associated nausea. He does feel some pain in the back. He says the pain is worse with taking a deep breath. No lower abdominal pain. Denies diarrhea. No fever, cough, difficulty breathing. He does have chronic In dwelling catheter in place and denies any recent issues with this. Does not take any blood thinners. Review of Systems Constitutional: denies: Fever Cardiac: reports: Chest pain / pressure Respiratory: denies: Dyspnea GI: reports: Abdominal Pain, Nausea. denies: Vomiting : denies: Dysuria PD PAST MEDICAL HISTORY - Past Medical History Past Medical History: Yes Cardiovascular: Hypertension Respiratory: None Neuro: None Endocrine/Autoimmune: None GI: None : Benign prostate hypertrophy, Indwelling catheter, Other HEENT: None, Macular degeneration Psych: None Musculoskeletal: None Derm: Psoriasis - Past Surgical History Past Surgical History: Yes General: Cholecystectomy HEENT: Tonsil/Adenoidectomy - Present Medications Home Medications: Ambulatory Orders Medication Instructions Recorded Confirmed Finasteride [Proscar] 5 mg PO DAILY 10/06/23 10/18/23 Lisinopril [Zestril] 20 mg PO BID 10/06/23 10/18/23 Spironolactone [Aldactone] 25 mg PO BID 10/06/23 10/18/23 Tamsulosin [Flomax] 0.4 mg PO DAILY 10/06/23 10/18/23 Rosuvastatin Calcium [Crestor] 20 mg PO HS 10/07/23 10/18/23 oxyBUTYnin chloride [Oxybutynin 5 mg PO DAILY 10/07/23 10/18/23 Chloride ER] Acetaminophen [Tylenol] 1,000 mg PO Q8HR PRN 14 Days #30 10/09/23 10/18/23 tablet Ibuprofen [Motrin] 1 tablet PO Q8H PRN #30 tablet 10/09/23 10/18/23 Mv-Min/FA/Vit K/Lutein/Zeaxant 1 cap PO DAILY 10/18/23 10/18/23 [Preservision Areds 2 Plus Mv] - Allergies Allergies/Adverse Reactions: Allergies Allergy/AdvReac Type Severity Reaction Status Date / Time No Known Drug Allergies Allergy Verified 10/18/23 11:00 - Social History Does the pt smoke?: No Smoking Status: Never smoker Does the pt drink ETOH?: No Does the pt have substance abuse?: No - Immunizations Immunizations are current?: Yes - POLST Patient has POLST: No PD ED PE NORMAL - General General: Alert and oriented X 3, No acute distress, Well developed/nourished - HEENT HEENT: Atraumatic - Neck Neck: Supple, no meningeal sign - Cardiac Cardiac: RRR, Strong equal pulses - Respiratory Respiratory: No respiratory distress, Clear bilaterally - Abdomen Abdomen: Normal bowel sounds, Soft, Non distended, Other (Mild epigastric tenderness) - Derm Derm: Warm and dry - Neuro Neuro: Normal speech Results - Vitals Vitals: Vital Signs - 24 hr 10/18/23 10/18/23 10/18/23 10:58 11:02 11:10 Temperature 36.5 C 36.4 C L Heart Rate 66 69 Respiratory 16 18 Rate Blood Pressure 138/61 H 128/78 Blood Pressure 128/78 [Right] O2 Saturation 99 99 10/18/23 10/18/23 10/18/23 13:00 15:00 17:00 Temperature Heart Rate 80 80 74 Respiratory 18 22 18 Rate Blood Pressure 130/82 H 130/81 H 121/74 Blood Pressure [Right] O2 Saturation 98 94 96 10/18/23 19:00 Temperature Heart Rate 74 Respiratory 18 Rate Blood Pressure 127/73 Blood Pressure [Right] O2 Saturation 97 Oxygen O2 Source Room air - EKG (time done) 1107 EKG releavant findings:: EKG personally interpreted by author of this note. Relevant findings are: Rate 64, normal sinus rhythm, no STEMI, QTc 459 - Labs Labs: Laboratory Tests 10/18/23 10/18/23 10/18/23 11:20 11:20 11:20 WBC 10.1 RBC 4.15 L Hgb 11.8 L Hct 37.8 L MCV 91.1 MCH 28.4 MCHC 31.2 L RDW 16.3 H Plt Count 316 MPV 10.1 Neut # (Auto) 7.9 H Lymph # (Auto) 1.1 L Buchanan # (Auto) 0.9 Eos # (Auto) 0.1 Baso # (Auto) 0.0 Absolute Nucleated RBC 0.00 Nucleated RBC % 0.0 D-Dimer > 1050.0 H Sodium 137 Potassium 4.1 Chloride 103 Carbon Dioxide 28 Anion Gap 6.0 BUN 13 Creatinine 0.9 Estimated GFR (MDRD) 82 L Glucose 103 Calcium 9.4 Total Bilirubin 2.1 H AST 629 H ALT 409 H Alkaline Phosphatase 198 H Troponin I High Sens 5.0 Total Protein 6.8 Albumin 3.7 Globulin 3.1 Albumin/Globulin Ratio 1.2 Lipase 3247 H PD Medical Decision Making - ED course Complexity details: reviewed results, re-evaluated patient, d/w patient, d/w family ED course: Patient is a 73-year-old male presenting with epigastric and chest pain who is recently postop from a lap mattie. EKG is reviewed and nonischemic. CBC, chemistries, troponin Were obtained. D-dimer was also obtained as patient reported that his symptoms were worse with taking a deep breath including some lower chest pain. Labs significant for elevated D-dimer, elevated LFTs, elevated lipase. CT angio of the chest to evaluate for PE as well as CT abdomen pelvis were obtained. No pulmonary embolism on CT chest. CT abdomen pelvis de monstrates possible dilatation of the intrahepatic bile ducts at the level of the hilum. However this was not clear so radiologist did recommend MRCP. Patient only had mild discomfort and was given a dose of IV morphine and Zofran with improvement in symptoms. MRCP report pending at shift changed. Dr. Michelle to follow up. Departure - Departure Disposition: 66 [facility] DC/Xfer Clinical Impression: Pancreatitis Forms: PCP List
--- NOTE | 2023-10-18 11:26 | XRAY Report ---
PROCEDURE: Chest 1V INDICATIONS: lower CP TECHNIQUE: One view of the chest was acquired. COMPARISON: The 05/25/2023. FINDINGS: Surgical changes and devices: None. Lungs and pleura: No pleural effusions or pneumothorax. Mild pulmonary vascular congestion is seen. No definite focal infiltrate. Mediastinum: Mediastinal contours appear normal. Heart size is normal. Bones and chest wall: No suspicious bony lesions. Overlying soft tissues appear unremarkable. IMPRESSION: Mild congestion. No focal infiltrate, pleural effusion or pneumothorax. Reviewed by: Aamir Beck MD on 10/18/2023 11:25 AM PDT Approved by: Aamir Beck MD on 10/18/2023 11:25 AM PDT Station ID: [id number]
[2023-10-18 11:32] LABS: BASOPHILS % (AUTO) 0.3 %; EOSINOPHILS # (AUTO) 0.1 10^3/uL (0.0-0.7); EOSINOPHILS % (AUTO) 0.9 %; HCT - HEMATOCRIT 37.8 % (42.0-52.0); HGB - HEMOGLOBIN 11.8 g/dL (14.0-18.0); LYMPHOCYTES # (AUTO) 1.1 10^3/uL (1.5-3.5); LYMPHOCYTES % (AUTO) 10.6 %; MEAN CORPUSCULAR HEMOGLOBIN 28.4 pg (27.0-31.0); MEAN CORPUSCULAR HGB CONC 31.2 g/dL (32.0-36.0); MEAN CORPUSCULAR VOLUME 91.1 fL (80.0-94.0); MEAN PLATELET VOLUME 10.1 fL (7.4-11.4); MONOCYTES # (AUTO) 0.9 10^3/uL (0.0-1.0); NEUTROPHILS # (AUTO) 7.9 10^3/uL (1.5-6.6); NEUTROPHILS % (AUTO) 78.5 %; PLT - PLATELET COUNT 316 10^3/uL (130-450); RED BLOOD COUNT 4.15 10^6/uL (4.70-6.10); RED CELL DISTRIBUTION WIDTH 16.3 % (12.0-15.0); WHITE BLOOD COUNT 10.1 x10^3/uL (4.8-10.8)
[2023-10-18 11:59] LABS: ALBUMIN 3.7 g/dL (3.2-5.5); ALBUMIN/GLOBULIN RATIO 1.2 (1.0-2.2); BILIRUBIN,TOTAL 2.1 mg/dL (0.2-1.0); CALCIUM 9.4 mg/dL (8.5-10.3); CREATININE 0.9 mg/dL (0.6-1.3); POTASSIUM 4.1 mmol/L (3.5-4.5); TOTAL PROTEIN 6.8 g/dL (6.4-8.9)
[2023-10-18] MEDS ORDERED: iohexoL-300 100 ML VIAL ONE (12:27)
[2023-10-18] MEDS: MORPHINE 2 MG/ML CARPUJECT IVP STA (12:29)
[2023-10-18] MEDS: ONDANSETRON 4 MG/2 ML VIAL IVP STA (12:29)
[2023-10-18] MEDS: SODIUM CHLORIDE 0.9% 1,000 ML IV STA (12:29)
--- NOTE | 2023-10-18 13:34 | CT Report ---
PROCEDURE: Abdomen/Pelvis W INDICATIONS: upper abd pain/abnormal lipase/bili/lfts CONTRAST: Omnipaque 300 100ml TECHNIQUE: After the administration of intravenous contrast, a CT scan of the abdomen and pelvis was performed. Images were recorded and evaluated at appropriate window settings. Reformats: coronal and sagittal. F or radiation dose reduction, the following was used: automated exposure control, adjustment of mA and /or kV according to patient size. COMPARISON: CT IVP dated 01/13/2023, CT abdomen with and without contrast dated 03/05/2023, right upper quadrant ultrasound dated 10/06/2023, operative cholangiogram dated 10/07/2023 FINDINGS: Image quality: Diagnostic. Lower chest: Patchy left basilar atelectasis. Liver: No solid mass. Cavernous hemangioma of the left lobe of the liver, as well as a smaller cavern ous hemangioma in the right lobe of the liver.. Gallbladder: Recent cholecystectomy. There is postoperative change present in the gallbladder fossa, possibly representing resolving postsurgical hematoma. There is no clear evidence of a postoperative abscess. Biliary tree: Development of mild central intrahepatic biliary ductal dilatation compared to preopera tive studies. The extrahepatic duct is normal caliber. Cannot exclude postsurgical hilar biliary obst ruction. Spleen: No splenomegaly. Pancreas: No pancreatic ductal dilation. Adrenals: No adrenal nodule. Kidneys and ureters: Bosniak 3 cystic lesion of the lower pole of the left kidney again noted, measur ing 3.2 cm. On the previous study it measured 3.1 cm. Stomach, bowel and peritoneum: No gastric or small bowel dilation. No abnormal wall thickening. No pa thologic free fluid. Lymph nodes: No central or retroperitoneal adenopathy. Vessels: No infrarenal aortic aneurysm. Patent portal vein. PELVIS Reproductive organs: Marked enlargement of the prostate. A Aldana catheter is in place.. Bladder: Aldana catheter in place. Bladder decompressed. Pelvic lymph nodes: No pelvic adenopathy by size criteria. Bones: No aggressive osseous abnormality. Other: Fat-containing left inguinal hernia. IMPRESSION: 1. Recent interval cholecystectomy with postoperative change in the surgical bed. 2. There is development of mild central hepatic biliary ductal dilatation without extrahepatic biliar y ductal dilatation. Cannot exclude obstruction at the level of the biliary hilum. 3. Marked prostatomegaly with Aldana catheter in place. 4. 3.2 cm Bosniak 3 cyst of the left kidney is stable or very minimally increased in size. Comments: Consider MRCP with and without contrast to further evaluate the biliary tree. In this patie nt with marked prostatomegaly, recommend correlation with physical exam and PSA level if this has not yet been performed. Recommend follow-up imaging in one year to document stability of the renal lesio n. Reviewed by: Torsten Ziegler MD on 10/18/2023 1:32 PM PDT Approved by: Torsten Ziegler MD on 10/18/2023 1:32 PM PDT Station ID: [id number]
--- NOTE | 2023-10-18 13:53 | CT Report ---
PROCEDURE: Angio Chest INDICATIONS: CP/SOA/worse with deep breath CONTRAST: Omnipaque 300 100ml TECHNIQUE: After the administration of intravenous contrast, 2 mm axial images were acquired from the pulmonary apices to the posterior costophrenic angles during the arterial phase. In addition, 1 mm lung kernel and 5 mm soft tissue kernel reconstructions were performed. 3-dimensional coronal oblique maximum int ensity projection (MIP) reformats, 8 mm axial MIP, and 5 mm coronal and sagittal MPR reformats were t hen performed through the thorax. For radiation dose reduction, the following was used: automated exp osure control, adjustment of mA and/or kV according to patient size. COMPARISON: CT abdomen and pelvis from the same date. Please refer to a separate report for findings in the abdomen and pelvis. FINDINGS: Image quality: Excellent. Large vessels: No filling defects within the opacified pulmonary arteries, accounting for motion and contrast timing. No evidence of acute aortic syndrome or aortic aneurysm. Lungs and pleura: No consolidation. No pleural effusions. No pneumothorax. No suspicious pulmonary n odules which require follow up. Mediastinum: Heart size is normal. No pericardial effusion. No large vessel abnormality. No mediastin al adenopathy by size criteria. Chest wall and lower neck: Thyroid is unremarkable. No axillary or supraclavicular adenopathy by size . Bones: No aggressive osseous abnormality. Upper Abdomen: Unremarkable. IMPRESSION: No pulmonary embolus. No acute pulmonary process. Reviewed by: Torsten Ziegler MD on 10/18/2023 1:51 PM PDT Approved by: Torsten Ziegler MD on 10/18/2023 1:51 PM PDT Station ID: [id number]
[2023-10-18] MEDS: iohexoL-300 100 ML VIAL IVP ONE (15:57)
[2023-10-18] MEDS ORDERED: GADOTERATE MEGLUMINE 10 MMOL/20 ML VIAL ONE (16:39)
--- NOTE | 2023-10-18 18:15 | MRI Report ---
PROCEDURE: MRCP W/WO INDICATIONS: abnormal lfts/pancreatitis CONTRAST: clariscan 20.4ml TECHNIQUE: Coronal ultra fast SE through the abdomen, axial 2-D spoiled GE in- and [id number], and breath-hold T2 FSE with fat saturation through the biliary system and pancreas. Oblique coronal and axial thin- slice ultra fast SE, radial thick-slab ultra fast SE centered on the extrahepatic bile ducts. COMPARISON: CT abdomen pelvis 10/18/2023 FINDINGS: Image quality: Excellent. Gallbladder: Surgically absent. Heterogeneous appearance of the gallbladder fossa with possible fluid collection measuring 2.9 x 1.2 x 0.9 cm. Mild adjacent and peripancreatic edema. Biliary tree: Mild prominence of the proximal intrahepatic bile ducts measure up to 5 mm. No common b ile duct dilatation. No filling defects are seen. Pancreas: Mild peripancreatic inflammation surrounding the head and uncinate process. Lung bases and heart: Left basilar atelectasis. Liver: Hepatic simple cysts are noted. In the left hepatic lobe, there is a mildly T2 hyperintense st ructure measuring approximately 2.9 x 2.4 cm with possible mild enhancement on delayed imaging. Spleen: No splenomegaly. Adrenals: No adrenal nodule. Kidneys and ureters: No hydronephrosis. Complex cyst at the inferior pole left kidney is again noted with a nodular area of enhancement at the superior aspect. No solid mass. Bowel and peritoneum: No bowel distension. No pathologic free fluid. Lymph nodes: No central or retroperitoneal adenopathy. Vessels: No infrarenal aortic aneurysm. Bones: No aggressive osseous abnormality. Other: No significant ventral hernia. IMPRESSION: 1.Mild peripancreatic inflammation surrounding the head and uncinate process, consistent with history of pancreatitis. 2.Mild prominence of the intrahepatic bile ducts centrally. No filling defects are seen. Common bile duct is within normal limits. 3.Gallbladder surgically absent. Heterogeneous appearance of the gallbladder fossa with possible flui d collection measuring 2.9 x 1.2 x 0.9 cm. Bile leak or infection is not excluded and short-term foll ow-up is recommended. 4.Complex cyst at the inferior pole left kidney with a nodule of enhancement at the superior aspect. Findings are concerning for renal cell carcinoma. If no intervention is performed, recommend short-te rm follow-up imaging in 3-6 months. 5.Indeterminate lesion within the left hepatic lobe measuring 2.9 cm which demonstrates mild T2 hyper intense signal, lower than a simple cyst and possible mild enhancement on delayed imaging. Attention on follow-up imaging. Reviewed by: Prince Rainey MD on 10/18/2023 6:14 PM PDT Approved by: Prince Rainey MD on 10/18/2023 6:14 PM PDT Station ID: [id number]
[2023-10-18] MEDS: GADOTERATE MEGLUMINE 10 MMOL/20 ML VIAL IVP ONE (18:26)
--- NOTE | 2023-10-18 18:28 | ED Physician Documentation ---
ED Addendum - Addendum Addendum: 10/18/23 18:[address] Cage shortly after 6 PM shift change. Briefly this is a gentleman with pancreatitis with recent cholecystectomy and also has an obstructive pattern on his labs. MRCP now complete showing no biliary obstruction. Spoke with Dr. Medina, on-call surgeon who recommends admission to medicine for bowel rest. Disposition: Admitted to hospital Condition: Stable Diagnosis: 1. Pancreatitis 2. Fluid in the gallbladder bed 3. Left kidney cyst 4. Abnormal imaging of the liver 1.Mild peripancreatic inflammation surrounding the head and uncinate process, consistent with history of pancreatitis. 2.Mild prominence of the intrahepatic bile ducts centrally. No filling defects are seen. Common bile duct is within normal limits. 3.Gallbladder surgically absent. Heterogeneous appearance of the gallbladder fossa with possible fluid collection measuring 2.9 x 1.2 x 0.9 cm. Bile leak or infection is not excluded and short-term follow-up is recommended. 4.Complex cyst at the inferior pole left kidney with a nodule of enhancement at the superior aspect. Findings are concerning for renal cell carcinoma. If no intervention is performed, recommend short- term follow-up imaging in 3-6 months. 5.Indeterminate lesion within the left hepatic lobe measuring 2.9 cm which demonstrates mild T2 hyperintense signal, lower than a simple cyst and possible mild enhancement on delayed imaging. Attention on follow-up imaging. 10/18/23 19:03 Telehealth consultation placed at this time for admission noting I had to wait till after 7 for shift change. 10/18/23 19:[address] Vazquez, telejosephine for admission at this time.
--- NOTE | 2023-10-18 19:16 | HISTORY & PHYSICAL EXAMINATION ---
Chief Complaint - Chief Complaint Chief Complaint: Abdominal pain History of Present Illness - Admitted From Admitted From:: ER - History Obtained From Records Reviewed: Yes History obtained from: Patient, staff, chart Exam Limitations: Virtual exam - History of Present Illness HPI Comment/Other: H&P was conducted via video remotely, using Access Cart. Patient is in [place]. Physician is in [place]. No one is at bedside. 73 yo M ([employer]) with PMH of HTN, HLD, BPH with chronic indwelling Aldana catheter, Macular Degeneration, recent Cholecystectomy presented to the ER with c/o 1 day h/o abdomina pain. Pt was hospitalized from 10/05-10/09/23 for acute cholecystitis and had Lap mattie on 10/07/23, found to be gangrenous with obstr uctive gall stones. Pt has done well s/p discharge. He ate spaghetti and salad for supper the last 2 nights. Last night, he began to have back pain with radiation to substernal chest/epigastric area. Pain was 5/10 at its most intense; it then subsided and he was able to sleep. This morning when he woke, up felt the pain again and it would not resolve. +Nausea, no vomiting. BMs x 2 today, normal. Pt has had no urinary symptoms; no issues with his Aldana catheter. No F/C. Pt has had a chronic cough x 1 month and has been enrolled into a chronic cough study, upcoming. No SOB. In the ER, Hgb 11.8, Lipase 3247, Bili 2.1, Alk Phos 198, AST 629, ALT 409, D Dimer 1050 EKG: NSR at 64 bpm, no STTw changes CXR: mild pulmonary congestion CTA Chest: no P.E. CT Abdo/Pelvis: biliary ductal dilation; consider MRCP MRCP: 1.Mild peripancreatic inflammation surrounding the head and uncinate process, consistent with history of pancreatitis. 2.Mild prominence of the intrahepatic bile ducts centrally. No filling defects are seen. Common bile duct is within normal limits. 3.Gallbladder surgically absent. Heterogeneous appearance of the gallbladder fossa with possible fluid collection measuring 2.9 x 1.2 x 0.9 cm. Bile leak or infection is not excluded and short-term follow-up is recommended. 4.Complex cyst at the inferior pole left kidney with a nodule of enhancement at the superior aspect. Findings are concerning for renal cell carcinoma. If no intervention is performed, recommend short- term follow-up imaging in 3-6 months. 5.Indeterminate lesion within the left hepatic lobe measuring 2.9 cm which demonstrates mild T2 hyperintense signal, lower than a simple cyst and possible mild enhancement on delayed imaging. Attention on follow-up imaging. ER Physician D/W Dr. Medina, on-call surgeon and they recommended admission to medicine for bowel rest. Pt was given IVF, Zofran, Morphine in the ER. History - Past Medical History Cardiovascular: reports: Hypertension Respiratory: reports: None Neuro: reports: None Endocrine/Autoimmune: reports: None GI: reports: None : reports: Benign prostate hypertrophy, Indwelling catheter, Other HEENT: reports: None, Macular degeneration Psych: reports: None Musculoskeletal: reports: None Derm: reports: Psoriasis MRSA Hx?: No - Past Surgical History General: reports: Cholecystectomy HEENT: reports: Tonsil/Adenoidectomy - Family & Social History Living Situation: With spouse/s.o. - POLST Patient has POLST: No Meds/Allgy - Home Medications Home Medications: Ambulatory Orders Medication Instructions Recorded Confirmed Finasteride [Proscar] 5 mg PO DAILY 10/06/23 10/18/23 Lisinopril [Zestril] 20 mg PO BID 10/06/23 10/18/23 Spironolactone [Aldactone] 25 mg PO BID 10/06/23 10/18/23 Tamsulosin [Flomax] 0.4 mg PO DAILY 10/06/23 10/18/23 Rosuvastatin Calcium [Crestor] 20 mg PO HS 10/07/23 10/18/23 oxyBUTYnin chloride [Oxybutynin 5 mg PO DAILY 10/07/23 10/18/23 Chloride ER] Acetaminophen [Tylenol] 1,000 mg PO Q8HR PRN 14 Days #30 10/09/23 10/18/23 tablet Ibuprofen [Motrin] 1 tablet PO Q8H PRN #30 tablet 10/09/23 10/18/23 Mv-Min/FA/Vit K/Lutein/Zeaxant 1 cap PO DAILY 10/18/23 10/18/23 [Preservision Areds 2 Plus Mv] - Allergies Allergies/Adverse Reactions: Allergies Allergy/AdvReac Type Severity Reaction Status Date / Time No Known Drug Allergies Allergy Verified 10/18/23 11:00 Review of Systems - All Other Systems All Other Systems: reports: Reviewed and negative Exam - Vital Signs Reviewed Vital Signs: Yes Vital Signs: Vital Signs x48h Pulse Resp BP Pulse Ox 10/18/23 19:00 74 18 127/73 97 10/18/23 17:00 74 18 121/74 96 10/18/23 15:00 80 22 130/81 H 94 10/18/23 13:00 80 18 130/82 H 98 - Physical Exam General Appearance: positive: No acute distress, Alert Eyes Bilateral: positive: EOMI, No scleral icterus Respiratory: positive: Other (Access cart stethoscope not working; per ER Provider: CTA B/L) Cardiovascular: positive: Other (Access cart stethoscope not working; per ER Provider: RRR, no murmurs) Abdomen: positive: Other (per ER Provider: non-distended, mildly TTP epigastric, no R/G) Extremities: positive: Other (per ER Provider: moves all extrem, no edema) Neurologic/Psychiatric: positive: Oriented x3, Mood/affect nml, Other ( per ER Provider: NFD) Conclusion/Plan - Problem List (1) Pancreatitis Conclusion/Plan: Acute Pancreatitis Abdominal pain Elevated Lipase Elevated LFTs S/P recent Lap Mattie for obstructive/gall stone cholecystitis 10/07/23 Nausea -Lipase 3247, Bili 2.1, Alk Phos 198, AST 629, ALT 409, D Dimer 1050 -EKG: NSR at 64 bpm, no STTw changes -CXR: mild pulmonary congestion -CTA Chest: no P.E. -CT Abdo/Pelvis: biliary ductal dilation; consider MRCP -MRCP: 1.Mild peripancreatic inflammation surrounding the head and uncinate process, consistent with history of pancreatitis. 2.Mild prominence of the intrahepatic bile ducts centrally. No filling defects are seen. Common bile duct is within normal limits. 3.Gallbladder surgically absent. Heterogeneous appearance of the gallbladder fossa with possible fluid collection measuring 2.9 x 1.2 x 0.9 cm. Bile leak or infection is not excluded and short-term follow-up is recommended. 4.Complex cyst at the inferior pole left kidney with a nodule of enhancement at the superior aspect. Findings are concerning for renal cell carcinoma. If no intervention is performed, recommend short- term follow-up imaging in 3-6 months. 5.Indeterminate lesion within the left hepatic lobe measuring 2.9 cm which demonstrates mild T2 hyperintense signal, lower than a simple cyst and possible mild enhancement on delayed imaging. Attention on follow-up imaging. -ER Physician D/W Dr. Medina, on-call surgeon and they recommended admission to medicine for bowel rest. -Pt was given IVF, Zofran, Morphine in the ER. -admit to MedSurg -cause most likely d/t recent surgery/gallstones -IVF -NPO/bowel rest -anti-emetics PRN -pain mgmt -hold home medications: Lisinopril, Spironolactone as they can cause Pancreatitis -appreciate recs from General Surgery Anemia -Hgb 11.8 -check B12/Folate, iron studies Abnormal imaging L kidney complex cyst L lobe Liver lesion -per MRCP above -will need F/U imaging in outpt setting HTN HLD -continue home medications: statin -hold home medications: Lisinopril, Spironolactone as they can cause Pancreatitis BPH with chronic indwelling Aldana catheter -continue home medications: Finasteride, Flomax, Oxybutynin -continue Aldana catheter care VTE Prophylaxis: Lovenox Code Status: D/W pt; he is Full Code ~Sharlene Vazquez MD Hospitalist - Lab Results Lab results reviewed: Yes Darion Bones: 10/18/23 11:20 10/18/23 11:20
[2023-10-18] MEDS ORDERED: MORPHINE 2 MG/ML CARPUJECT IVP PRN (19:29)
[2023-10-18] MEDS ORDERED: ONDANSETRON 4 MG/2 ML VIAL IVP PRN (19:29)
[2023-10-18] MEDS ORDERED: SODIUM CHLORIDE FLUSH 0.9% 10 ML SYRINGE IVP PRN (19:29)
[2023-10-18] MEDS: LACTATED RINGERS 1,000 ML IV SCH (20:00)
[2023-10-18] MEDS: ATORVASTATIN 40 MG TABLET PO SCH (21:03)
[2023-10-19] MEDS: ACETAMINOPHEN 325 MG TABLET PO PRN (01:46)
[2023-10-19] MEDS: SODIUM CHLORIDE FLUSH 0.9% 10 ML SYRINGE IVP SCH (01:46)
[2023-10-19 05:37] LABS: BASOPHILS % (AUTO) 0.3 %; EOSINOPHILS # (AUTO) 0.2 10^3/uL (0.0-0.7); EOSINOPHILS % (AUTO) 1.9 %; HCT - HEMATOCRIT 33.9 % (42.0-52.0); HGB - HEMOGLOBIN 10.9 g/dL (14.0-18.0); LYMPHOCYTES # (AUTO) 1.2 10^3/uL (1.5-3.5); LYMPHOCYTES % (AUTO) 14.9 %; MEAN CORPUSCULAR HEMOGLOBIN 29.1 pg (27.0-31.0); MEAN CORPUSCULAR HGB CONC 32.2 g/dL (32.0-36.0); MEAN CORPUSCULAR VOLUME 90.4 fL (80.0-94.0); MEAN PLATELET VOLUME 10.5 fL (7.4-11.4); MONOCYTES # (AUTO) 0.8 10^3/uL (0.0-1.0); MONOCYTES % (AUTO) 10.2 %; NEUTROPHILS # (AUTO) 5.6 10^3/uL (1.5-6.6); NEUTROPHILS % (AUTO) 72.2 %; PLT - PLATELET COUNT 301 10^3/uL (130-450); RED BLOOD COUNT 3.75 10^6/uL (4.70-6.10); RED CELL DISTRIBUTION WIDTH 16.9 % (12.0-15.0); WHITE BLOOD COUNT 7.8 x10^3/uL (4.8-10.8)
[2023-10-19 05:54] LABS: ALBUMIN 3.2 g/dL (3.2-5.5); ALBUMIN/GLOBULIN RATIO 1.2 (1.0-2.2); BILIRUBIN,TOTAL 4.7 mg/dL (0.2-1.0); CALCIUM 8.8 mg/dL (8.5-10.3); CREATININE 0.9 mg/dL (0.6-1.3); TOTAL PROTEIN 5.9 g/dL (6.4-8.9)
--- NOTE | 2023-10-19 08:01 | PROVIDER PROGRESS NOTE ---
Assessment/Plan - Problem List (1) Acute biliary pancreatitis Assessment/Plan: N/V abdominal pain Recent cholecystectomy for cholecystitis (on 10/07/2023) Elevated liver enzyme and bilirubin Elevated lipase 3247-->1247, improving continue supportive care iv fluid diet as tolerated (2) Elevated bilirubin Assessment/Plan: trends up from 2.1-->4.7 ALP 198-->229 elevated liver enzyme MRCP showed fluid collection at gallbalder fossa, surgical Dr. Medina is consulted (3) Renal mass, left Assessment/Plan: MRCP showed left renal mass, suspected renal cell carcinoma Elevated [id number], no sign of DVT or PE, support the suspicion of malignancy Urology Dr. Penn is consulted, recommends outpatient follow up Patient is aware of the mass, has been following up with urology as outpatient (4) Aldana catheter in place on admission Assessment/Plan: Aldana is in place for BPH His private urologist plans HOlep procedure as outpatient - Current Meds Current Meds: Current Medications Generic Name Dose Route Start Last Admin Trade Name Freq PRN Reason Stop Dose Admin Acetaminophen 650 mg 10/18/23 19:29 10/19/23 01:46 Acetaminophen 325 Mg Tablet PO 650 mg Q4HR PRN Administration Pain 1 to 4, or Fever Atorvastatin Calcium 40 mg 10/18/23 21:00 10/18/23 21:03 Atorvastatin 40 Mg Tablet PO 40 mg HS JOEY Administration Lactated Ringer's 1,000 mls @ 100 mls/hr 10/18/23 20:00 10/19/23 06:06 Lr IV 100 mls/hr .Q10H JOEY Administration Sodium Chloride 10 ml 10/19/23 01:00 10/19/23 01:46 Sodium Chloride Flush 0.9% 10 Ml Syringe IVP Not Given 0100,0900,1700 JOEY - Lab Result Lab results reviewed: Yes Fish Bone Diagrams: 10/19/23 05:02 10/19/23 05:02 - Diagnostic Imaging Results Diagnostic Imaging Results: Final report reviewed - Additional Planning Condition/Complexity: Improved Consult/Specialty: Surgery, Urology Plan Discussed with:: Patient Time Spent: 31-60 minutes Subjective - Subjective Patient Reports: Feeling Better (Less abdominal pain, feels improved) Objective Vital Signs: Vital Signs - 24 hr 10/18/23 10/18/23 10/18/23 10:58 11:02 11:10 Temperature 36.5 C 36.4 C L Heart Rate 66 69 Heart Rate [ Brachial] Respiratory 16 18 Rate Blood Pressure 138/61 H 128/78 Blood Pressure [Left Brachial artery] Blood Pressure 128/78 [Right] O2 Saturation 99 99 10/18/23 10/18/23 10/18/23 13:00 15:00 17:00 Temperature Heart Rate 80 80 74 Heart Rate [ Brachial] Respiratory 18 22 18 Rate Blood Pressure 130/82 H 130/81 H 121/74 Blood Pressure [Left Brachial artery] Blood Pressure [Right] O2 Saturation 98 94 96 10/18/23 10/18/23 10/18/23 19:00 19:42 20:00 Temperature 36.4 C L Heart Rate 74 64 Heart Rate [ 63 Brachial] Respiratory 18 16 16 Rate Blood Pressure 127/73 127/73 Blood Pressure 140/75 H [Left Brachial artery] Blood Pressure [Right] O2 Saturation 97 95 96 10/19/23 00:45 Temperature 36.9 C Heart Rate Heart Rate [ 67 Brachial] Respiratory 16 Rate Blood Pressure Blood Pressure 103/66 [Left Brachial artery] Blood Pressure [Right] O2 Saturation 94 Oxygen O2 Source Room air I&O (Last 24 Hrs): Intake and Output Totals x24h 10/17/23 10/18/23 10/19/23 23:59 23:59 23:59 Intake Total 1000 1000 Output Total 425 550 Balance 575 450 General: Alert, Oriented x3, Cooperative HEENT: PERRLA, EOMI Neck: Supple, No JVD Neuro: Alert, Non Focal Cardiovascular: Regular rate Abdomen: Soft Extremities: No clubbing, No edema - Results Results: Laboratory Results WBC 7.8 x10^3/uL (4.8-10.8) 10/19/23 05:02 RBC 3.75 10^6/uL (4.70-6.10) L 10/19/23 05:02 Hgb 10.9 g/dL (14.0-18.0) L 10/19/23 05:02 Hct 33.9 % (42.0-52.0) L 10/19/23 05:02 MCV 90.4 fL (80.0-94.0) 10/19/23 05:02 MCH 29.1 pg (27.0-31.0) 10/19/23 05:02 MCHC 32.2 g/dL (32.0-36.0) 10/19/23 05:02 RDW 16.9 % (12.0-15.0) H 10/19/23 05:02 Plt Count 301 10^3/uL (130-450) 10/19/23 05:02 MPV 10.5 fL (7.4-11.4) 10/19/23 05:02 Neut # (Auto) 5.6 10^3/uL (1.5-6.6) 10/19/23 05:02 Lymph # (Auto) 1.2 10^3/uL (1.5-3.5) L 10/19/23 05:02 [place] # (Auto) 0.8 10^3/uL (0.0-1.0) 10/19/23 05:02 Eos # (Auto) 0.2 10^3/uL (0.0-0.7) 10/19/23 05:02 Baso # (Auto) 0.0 10^3/uL (0.0-0.1) 10/19/23 05:02 Absolute Nucleated RBC 0.00 x10^3/uL 10/19/23 05:02 Nucleated RBC % 0.0 /100WBC 10/19/23 05:02 D-Dimer > 1050.0 ng/mL (200.0-255.0) H 10/18/23 11:20 Sodium 139 mmol/L (135-145) 10/19/23 05:02 Potassium 4.0 mmol/L (3.5-4.5) 10/19/23 05:02 Chloride 105 mmol/L (101-111) 10/19/23 05:02 Carbon Dioxide 26 mmol/L (21-32) 10/19/23 05:02 Anion Gap 8.0 (6-13) 10/19/23 05:02 BUN 15 mg/dL (6-20) 10/19/23 05:02 Creatinine 0.9 mg/dL (0.6-1.3) 10/19/23 05:02 Estimated GFR (MDRD) 82 (>89) L 10/19/23 05:02 Glucose 89 mg/dL (74-104) 10/19/23 05:02 Calcium 8.8 mg/dL (8.5-10.3) 10/19/23 05:02 Iron 125 ug/dL (50-212) 10/19/23 05:02 TIBC 270 ug/dL (250-450) 10/19/23 05:02 % Saturation 46 % (20-50) 10/19/23 05:02 Transferrin 193 mg/dL (203-362) L 10/19/23 05:02 Total Bilirubin 4.7 mg/dL (0.2-1.0) H 10/19/23 05:02 AST 272 IU/L (10-42) H 10/19/23 05:02 ALT 326 IU/L (10-60) H 10/19/23 05:02 Alkaline Phosphatase 229 IU/L (42-121) H 10/19/23 05:02 Troponin I High Sens 5.0 ng/L (2.3-19.7) 10/18/23 11:20 Total Protein 5.9 g/dL (6.4-8.9) L 10/19/23 05:02 Albumin 3.2 g/dL (3.2-5.5) 10/19/23 05:02 Globulin 2.7 g/dL (2.1-4.2) 10/19/23 05:02 Albumin/Globulin Ratio 1.2 (1.0-2.2) 10/19/23 05:02 Lipase 3247 U/L (11-82) H 10/18/23 11:20 Vitamin B12 1247 pg/mL (180-914) H 10/19/23 05:02 Folate 24.9 ng/mL (5.90 - >24.8) 10/19/23 05:02 - Procedures Procedures: Procedures RADIOGRAPHY OF GALLBLADDER & BILE DUCT USING OTH CONTRAST (10/07/23) RESECTION OF GALLBLADDER, PERCUTANEOUS ENDOSCOPIC APPROACH (10/07/23) Sepsis Event Note (H) - Evaluation Current Stage of Sepsis: Ruled out ABX Reporting Has patient been on IV antibiotics over the past 48 hours?: No Current Medications - Current Medications Current Medications: Active Medications Acetaminophen (Acetaminophen 325 Mg Tablet) 650 mg PO Q4HR PRN PRN Reason: Pain 1 to 4, or Fever Last Admin: 10/19/23 08:00 Dose: 650 mg Atorvastatin Calcium (Atorvastatin 40 Mg Tablet) 40 mg PO HS JOEY Last Admin: 10/18/23 21:03 Dose: 40 mg Enoxaparin Sodium (Enoxaparin 40 Mg/0.4 Ml Syringe) 40 mg SUBQ DAILY [facility] Last Admin: 10/19/23 09:12 Dose: 40 mg Finasteride (Finasteride 5 Mg Tablet) 5 mg PO DAILY [facility] Last Admin: 10/19/23 09:12 Dose: 5 mg Lactated Ringer's (Lr) 1,000 mls @ 100 mls/hr IV .Q10H [facility] Last Admin: 10/19/23 06:06 Dose: 100 mls/hr Morphine Sulfate (Morphine 2 Mg/Ml Carpuject) 4 mg IVP Q4HR PRN PRN Reason: Pain 8 to 10 Ondansetron HCl (Ondansetron 4 Mg/2 Ml Vial) 4 mg IVP Q6HR PRN PRN Reason: Nausea / Vomiting Sodium Chloride (Sodium Chloride Flush 0.9% 10 Ml Syringe) 10 ml IVP PRN PRN PRN Reason: NEEDED PER PROVIDER ORDERS Sodium Chloride (Sodium Chloride Flush 0.9% 10 Ml Syringe) 10 ml IVP 0100,0900,1700 [facility] Last Admin: 10/19/23 09:12 Dose: Not Given Solifenacin (Solifenacin Succinate 5 Mg Tablet) 5 mg PO DAILY [facility] Last Admin: 10/19/23 09:12 Dose: 5 mg Tamsulosin HCl (Tamsulosin 0.4 Mg Capsule) 0.4 mg PO DAILY [facility] Last Admin: 10/19/23 09:12 Dose: 0.4 mg Finasteride [Proscar] 5 mg PO DAILY 10/06/23 Lisinopril [Zestril] 20 mg PO BID 10/06/23 Spironolactone [Aldactone] 25 mg PO BID 10/06/23 Tamsulosin [Flomax] 0.4 mg PO DAILY 10/06/23 Rosuvastatin Calcium [Crestor] 20 mg PO HS 10/07/23 oxyBUTYnin chloride [Oxybutynin Chloride ER] 5 mg PO DAILY 10/07/23 Mv-Min/FA/Vit K/Lutein/Zeaxant [Preservision Areds 2 Plus Mv] 1 cap PO DAILY 10/18/23
[2023-10-19] MEDS ORDERED: [UNRECOGNIZED DRUG - MIXTURE] PO SCH (09:00)
[2023-10-19] MEDS: ENOXAPARIN 40 MG/0.4 ML SYRINGE SUBQ SCH (09:12)
[2023-10-19] MEDS: TAMSULOSIN 0.4 MG CAPSULE PO SCH (09:12)
[2023-10-19] MEDS: SOLIFENACIN SUCCINATE 5 MG TABLET PO SCH (09:12)
[2023-10-19] MEDS: FINASTERIDE 5 MG TABLET PO SCH (09:12)
--- NOTE | 2023-10-19 10:08 | PHARMACY PROGRESS NOTE ---
- Best Possible Medication History Admit Date and Time: 10/18/231928 Processed by: Nursing Medications reviewed in ED?: Yes Medication History completed: Yes Patient Interview: Completed Secondary Source(s): Insurance records As the person ultimately responsible for medication therapy, providers are able to order a medication from an existing home medication list in [facility] via the "Reconcile Routine" prior to Confirmation of that medication by operations support manager. Such practice is discouraged except when the physician, in their clinical judgment, deems that a medical need exists for a medication without regard to previous use.
--- NOTE | 2023-10-19 15:52 | CONSULTATION NOTE ---
Referring Provider Name of Referring Provider:: Dr. Armando Mendoza Consult Date: 10/19/23 Chief Complaint - Chief Complaint Chief Complaint: Elevated bilirubin, lipase following laparoscopic cholecystectomy History of Present Illness - Admitted From Admitted From:: ED - History Obtained From Records Reviewed: Yes History obtained from: Dr. Mendoza, chart, patient Exam Limitations: None - History of Present Illness HPI Comment/Other: I have been called on consultation by Dr. Armando Mendoza to evaluate this exceedingly pleasant 73 year old male for elevated bilirubin and lipase following a laparoscopic cholecystectomy with IOC performed by Dr. Carrillo. Interestingly the IOC reading ONLY mentions flow into the cystic duct due to occlusion from multiple stones so I am assuming that there were common bile duct stones. The patient has multiple other health issues including a renal mass and symptomatic prostatic hypertrophy. The patient is otherwise minimally symptomatic regarding his elevated LFTs. No significant nausea and not vomiting. History - Past Medical History Cardiovascular: reports: Hypertension Respiratory: reports: None Neuro: reports: None Endocrine/Autoimmune: reports: None GI: reports: None : reports: Benign prostate hypertrophy, Indwelling catheter, Other HEENT: reports: None, Macular degeneration Psych: reports: None Musculoskeletal: reports: None Derm: reports: Psoriasis MRSA Hx?: No Other Past Medical History: Psoriasis - Past Surgical History General: reports: Cholecystectomy HEENT: reports: Tonsil/Adenoidectomy - Family & Social History Living Situation: With spouse/s.o. - POLST Patient has POLST: No Meds/Allgy - Home Medications Home Medications: Ambulatory Orders Medication Instructions Recorded Confirmed Finasteride [Proscar] 5 mg PO DAILY 10/06/23 10/18/23 Lisinopril [Zestril] 20 mg PO BID 10/06/23 10/18/23 Spironolactone [Aldactone] 25 mg PO BID 10/06/23 10/18/23 Tamsulosin [Flomax] 0.4 mg PO DAILY 10/06/23 10/18/23 Rosuvastatin Calcium [Crestor] 20 mg PO HS 10/07/23 10/18/23 oxyBUTYnin chloride [Oxybutynin 5 mg PO DAILY 10/07/23 10/18/23 Chloride ER] Acetaminophen [Tylenol] 1,000 mg PO Q8HR PRN 14 Days #30 10/09/23 10/18/23 tablet Ibuprofen [Motrin] 1 tablet PO Q8H PRN #30 tablet 10/09/23 10/18/23 Mv-Min/FA/Vit K/Lutein/Zeaxant 1 cap PO DAILY 10/18/23 10/18/23 [Preservision Areds 2 Plus Mv] - Allergies Allergies/Adverse Reactions: Allergies Allergy/AdvReac Type Severity Reaction Status Date / Time No Known Drug Allergies Allergy Verified 10/18/23 11:00 Review of Systems - Constitutional Constitutional: denies: Fatigue, Fever, Chills - Eyes Eyes: denies: Pain - Ears, Nose & Throat Ears, Nose & Throat: denies: Ear pain - Cardiovascular Cariovascular: denies: Chest pain - Respiratory Respiratory: denies: Cough - Gastrointestinal Gastrointestinal: denies: Abdominal pain, Constipation, Diarrhea, Black stools, Bloody stools Exam - Vital Signs Reviewed Vital Signs: Yes Vital Signs: Vital Signs x48h Temp Pulse Resp BP Pulse Ox 10/19/23 08:01 37 C 71 16 140/74 H 94 - Physical Exam General Appearance: positive: No acute distress Eyes Bilateral: positive: No lid inflammation, Conjunctivae nml, No scleral icterus ENT: positive: Pharynx nml, No signs of dehydration Neck: positive: Trachea midline Respiratory: positive: Chest non-tender, No respiratory distress, Breath sounds nml Cardiovascular: positive: Regular rate & rhythm, No murmur, No gallop Abdomen: positive: Non-tender, No organomegaly, Nml bowel sounds Skin: positive: Color nml, No rash, Warm, Dry Extremities: negative: Jd's sign/cords Neurologic/Psychiatric: positive: Oriented x3, Motor nml, Sensation nml, Mood/affect nml Conclusion/Plan - Lab Results Lab results reviewed: Yes Fish Bones: 10/19/23 05:02 10/19/23 05:02 - Diagnostic Imaging Results Diagnostic Imaging Results: positive: Final report reviewed, Other (Also reviewed IOC performed by Dr. Carrillo.) - Other Other Results/Comments: Surgically there is nothing to done regarding this patient. Two scenarios are likely: 1 There is a retained common bile duct stone (despite the MRCP) and if bilirubin and alkaline phosphatase continue to rise in the absence of other abnormal results I would recommend ERCP with sphincterotomy for diagnostic AND therapeutic reasons. I think that this is the most likely scenario. 2 The patient has a biloma either due to leakage from the clips or a duct of [place] in which case an ERCP can diagnose and treat the bile leakage by reducing the already low intra-biliary pressure with endoscopic sphincterotomy (and stent if it is felt to be necessary). I appreciate the opportunity to participate in this patient's care and will continue to follow if there are surgical questions. CPT 39761
[2023-10-20 05:44] LABS: BASOPHILS % (AUTO) 0.3 %; EOSINOPHILS # (AUTO) 0.2 10^3/uL (0.0-0.7); EOSINOPHILS % (AUTO) 2.1 %; HCT - HEMATOCRIT 32.7 % (42.0-52.0); HGB - HEMOGLOBIN 10.8 g/dL (14.0-18.0); LYMPHOCYTES # (AUTO) 1.3 10^3/uL (1.5-3.5); LYMPHOCYTES % (AUTO) 16.7 %; MEAN CORPUSCULAR HEMOGLOBIN 29.7 pg (27.0-31.0); MEAN CORPUSCULAR VOLUME 89.8 fL (80.0-94.0); MEAN PLATELET VOLUME 10.4 fL (7.4-11.4); MONOCYTES # (AUTO) 0.7 10^3/uL (0.0-1.0); MONOCYTES % (AUTO) 9.7 %; NEUTROPHILS # (AUTO) 5.4 10^3/uL (1.5-6.6); NEUTROPHILS % (AUTO) 70.9 %; PLT - PLATELET COUNT 297 10^3/uL (130-450); RED BLOOD COUNT 3.64 10^6/uL (4.70-6.10); RED CELL DISTRIBUTION WIDTH 16.4 % (12.0-15.0); WHITE BLOOD COUNT 7.6 x10^3/uL (4.8-10.8)
[2023-10-20 05:53] LABS: ALBUMIN 3.1 g/dL (3.2-5.5); ALBUMIN/GLOBULIN RATIO 1.2 (1.0-2.2); CALCIUM 8.8 mg/dL (8.5-10.3); CREATININE 0.8 mg/dL (0.6-1.3); POTASSIUM 3.8 mmol/L (3.5-4.5); TOTAL PROTEIN 5.6 g/dL (6.4-8.9)
--- NOTE | 2023-10-20 08:04 | PROVIDER PROGRESS NOTE ---
Assessment/Plan - Problem List (1) Acute biliary pancreatitis Assessment/Plan: improved Lipase down to 196 Bilirubin down to 2.0 AST, ALT trend down ALP 234 stable continue supportive care, advance diet as tolerated (2) Elevated bilirubin Assessment/Plan: improved to 2 monitoring (3) Renal mass, left Assessment/Plan: Urology evaluated patient, outpatient follow up is proper (4) Aldana catheter in place on admission Assessment/Plan: continue Aldana care follow up with urology as outpatient - Current Meds Current Meds: Current Medications Generic Name Dose Route Start Last Admin Trade Name Freq PRN Reason Stop Dose Admin Acetaminophen 650 mg 10/18/23 19:29 10/19/23 08:00 Acetaminophen 325 Mg Tablet PO 650 mg Q4HR PRN Administration Pain 1 to 4, or Fever Atorvastatin Calcium 40 mg 10/18/23 21:00 10/19/23 20:13 Atorvastatin 40 Mg Tablet PO 40 mg HS JOEY Administration Enoxaparin Sodium 40 mg 10/19/23 09:00 10/19/23 09:12 Enoxaparin 40 Mg/0.4 Ml Syringe SUBQ 40 mg DAILY JOEY Administration Finasteride 5 mg 10/19/23 09:00 10/19/23 09:12 Finasteride 5 Mg Tablet PO 5 mg DAILY JOEY Administration Lactated Ringer's 1,000 mls @ 100 mls/hr 10/18/23 20:00 10/20/23 01:45 Lr IV 100 mls/hr .Q10H JOEY Administration Sodium Chloride 10 ml 10/19/23 01:00 10/20/23 01:45 Sodium Chloride Flush 0.9% 10 Ml Syringe IVP Not Given 0100,0900,1700 JOEY Solifenacin 5 mg 10/19/23 09:00 10/19/23 09:12 Solifenacin Succinate 5 Mg Tablet PO 5 mg DAILY JOEY Administration Tamsulosin HCl 0.4 mg 10/19/23 09:00 10/19/23 09:12 Tamsulosin 0.4 Mg Capsule PO 0.4 mg DAILY JOEY Administration - Lab Result Lab results reviewed: Yes Fish Bone Diagrams: 10/20/23 05:13 10/20/23 05:13 - Diagnostic Imaging Results Diagnostic Imaging Results: Final report reviewed - Additional Planning Condition/Complexity: Improved My Orders: My Active Orders 10/19/23 Dinner Clear Liquid Diet [DIET] 10/20/23 05:13 AFP SERUM TUMOR MARKER [REFLAB] DAILY Plan Discussed with:: Patient Time Spent: 15-30 minutes Subjective - Subjective Patient Reports: Feeling Better, Other (no abdominal pain, walks to bathroom, in unit, ready for more food challenge) Objective Vital Signs: Vital Signs - 24 hr 10/19/23 10/20/23 16:00 00:00 Temperature 36.9 C 36.9 C Heart Rate [ 68 66 Brachial] Respiratory 16 16 Rate Blood Pressure 149/70 H 143/81 H [Left Brachial artery] O2 Saturation 94 95 Oxygen O2 Source Room air I&O (Last 24 Hrs): Intake and Output Totals x24h 10/18/23 10/19/23 10/20/23 23:59 23:59 23:59 Intake Total 1000 2926.667 1000 Output Total 425 1800 1400 Balance 575 1126.667 -400 General: Alert, Oriented x3 HEENT: PERRLA, EOMI Neck: Supple, No JVD Neuro: Alert, Non Focal Cardiovascular: Regular rate Respiratory: No respiratory distress Abdomen: Normal bowel sounds, No tenderness Genitourinary: Other (Aldana in place) Extremities: No clubbing, No edema Skin: No rashes - Results Results: Laboratory Results WBC 7.6 x10^3/uL (4.8-10.8) 10/20/23 05:13 RBC 3.64 10^6/uL (4.70-6.10) L 10/20/23 05:13 Hgb 10.8 g/dL (14.0-18.0) L 10/20/23 05:13 Hct 32.7 % (42.0-52.0) L 10/20/23 05:13 MCV 89.8 fL (80.0-94.0) 10/20/23 05:13 MCH 29.7 pg (27.0-31.0) 10/20/23 05:13 MCHC 33.0 g/dL (32.0-36.0) 10/20/23 05:13 RDW 16.4 % (12.0-15.0) H 10/20/23 05:13 Plt Count 297 10^3/uL (130-450) 10/20/23 05:13 MPV 10.4 fL (7.4-11.4) 10/20/23 05:13 Neut # (Auto) 5.4 10^3/uL (1.5-6.6) 10/20/23 05:13 Lymph # (Auto) 1.3 10^3/uL (1.5-3.5) L 10/20/23 05:13 [place] # (Auto) 0.7 10^3/uL (0.0-1.0) 10/20/23 05:13 Eos # (Auto) 0.2 10^3/uL (0.0-0.7) 10/20/23 05:13 Baso # (Auto) 0.0 10^3/uL (0.0-0.1) 10/20/23 05:13 Absolute Nucleated RBC 0.00 x10^3/uL 10/20/23 05:13 Nucleated RBC % 0.0 /100WBC 10/20/23 05:13 D-Dimer > 1050.0 ng/mL (200.0-255.0) H 10/18/23 11:20 Sodium 136 mmol/L (135-145) 10/20/23 05:13 Potassium 3.8 mmol/L (3.5-4.5) 10/20/23 05:13 Chloride 104 mmol/L (101-111) 10/20/23 05:13 Carbon Dioxide 27 mmol/L (21-32) 10/20/23 05:13 Anion Gap 5.0 (6-13) L 10/20/23 05:13 BUN 12 mg/dL (6-20) 10/20/23 05:13 Creatinine 0.8 mg/dL (0.6-1.3) 10/20/23 05:13 Estimated GFR (MDRD) 94 (>89) 10/20/23 05:13 Glucose 103 mg/dL (74-104) 10/20/23 05:13 Calcium 8.8 mg/dL (8.5-10.3) 10/20/23 05:13 Iron 125 ug/dL (50-212) 10/19/23 05:02 TIBC 270 ug/dL (250-450) 10/19/23 05:02 % Saturation 46 % (20-50) 10/19/23 05:02 Transferrin 193 mg/dL (203-362) L 10/19/23 05:02 Total Bilirubin 2.0 mg/dL (0.2-1.0) H 10/20/23 05:13 AST 152 IU/L (10-42) H 10/20/23 05:13 ALT 260 IU/L (10-60) H 10/20/23 05:13 Alkaline Phosphatase 234 IU/L (42-121) H 10/20/23 05:13 Troponin I High Sens 5.0 ng/L (2.3-19.7) 10/18/23 11:20 Total Protein 5.6 g/dL (6.4-8.9) L 10/20/23 05:13 Albumin 3.1 g/dL (3.2-5.5) L 10/20/23 05:13 Globulin 2.5 g/dL (2.1-4.2) 10/20/23 05:13 Albumin/Globulin Ratio 1.2 (1.0-2.2) 10/20/23 05:13 Lipase 196 U/L (11-82) H 10/19/23 05:02 Free PSA 0.327 ng/mL (0.16-2.81) 10/20/23 05:13 Vitamin B12 1247 pg/mL (180-914) H 10/19/23 05:02 Folate 24.9 ng/mL (5.90 - >24.8) 10/19/23 05:02 - Procedures Procedures: Procedures RADIOGRAPHY OF GALLBLADDER & BILE DUCT USING OTH CONTRAST (10/07/23) RESECTION OF GALLBLADDER, PERCUTANEOUS ENDOSCOPIC APPROACH (10/07/23) Sepsis Event Note (H) - Evaluation Current Stage of Sepsis: Ruled out ABX Reporting Has patient been on IV antibiotics over the past 48 hours?: No
[2023-10-20] MEDS: lisinopriL 20 MG TABLET PO SCH (08:50)
[2023-10-20] MEDS ORDERED: lisinopriL 20 MG TABLET PO SCH (09:00)
--- NOTE | 2023-10-20 09:31 | PROVIDER PROGRESS NOTE ---
Assessment/Plan - Current Meds Current Meds: Current Medications Generic Name Dose Route Start Last Admin Trade Name Chanduq PRN Reason Stop Dose Admin Enoxaparin Sodium 40 mg 10/19/23 09:00 10/20/23 08:51 Enoxaparin 40 Mg/0.4 Ml Syringe SUBQ 40 mg DAILY JOEY Administration Finasteride 5 mg 10/19/23 09:00 10/20/23 08:51 Finasteride 5 Mg Tablet PO 5 mg DAILY JOEY Administration Lactated Ringer's 1,000 mls @ 100 mls/hr 10/18/23 20:00 10/20/23 01:45 Lr IV 10/20/23 12:00 100 mls/hr .Q10H JOEY Administration Lisinopril 20 mg 10/20/23 09:00 10/20/23 08:50 Lisinopril 20 Mg Tablet PO 20 mg BID JOEY Administration Sodium Chloride 10 ml 10/19/23 01:00 10/20/23 08:51 Sodium Chloride Flush 0.9% 10 Ml Syringe IVP 10 ml 0100,0900,1700 JOEY Administration Solifenacin 5 mg 10/19/23 09:00 10/20/23 08:50 Solifenacin Succinate 5 Mg Tablet PO 5 mg DAILY JOEY Administration Tamsulosin HCl 0.4 mg 10/19/23 09:00 10/20/23 08:50 Tamsulosin 0.4 Mg Capsule PO 0.4 mg DAILY JOEY Administration - Lab Result Lab results reviewed: Yes Fish Bone Diagrams: 10/20/23 05:13 10/20/23 05:13 - Additional Planning Condition/Complexity: Improved Time Spent: Less than 15 minutes Additional Planning Notes: Review of the labs and the previous operative report leads me to suspect that the patient passed a common bile duct stone. This is the most likely scenario despite the MRCP results. As long as the patient continues to improve I would stay the course. If this recurs then ERCP is absolutely indicated. It is mildly indicated now as there is no way of knowing how many common bile duct stones there are (there clearly are stones there per the operative IOC) - I could argue for a prophylactic ERCP to prevent a recurrence. It is unlikely that you will get a supervisor smoke control to agree with this interpretation so stay the course. Again there is no surgical intervention indicated. Discussed again with patient in the evening. Subjective - Subjective Patient Reports: Feeling Better, Resting Comfortably, No Complaints, Diarrhea (Slight today.) Objective Vital Signs: Vital Signs - 24 hr 10/19/23 10/20/23 10/20/23 16:00 00:00 08:00 Temperature 36.9 C 36.9 C 37.0 C Heart Rate [ 68 66 64 Brachial] Respiratory 16 16 16 Rate Blood Pressure 149/70 H 143/81 H 151/80 H [Left Brachial artery] O2 Saturation 94 95 94 Oxygen O2 Source Room air I&O (Last 24 Hrs): Intake and Output Totals x24h 10/18/23 10/19/23 10/20/23 23:59 23:59 23:59 Intake Total 1000 2926.667 1600 Output Total 425 1800 1400 Balance 575 1126.667 200 General: Alert, Oriented x3, Cooperative, No acute distress HEENT: Atraumatic Neuro: Alert, Non Focal, Oriented Times 3 Cardiovascular: Regular rate, Normal S1, Normal S2 Respiratory: Chest non-tender, No respiratory distress, Breath sounds nml Abdomen: Normal bowel sounds, No tenderness, No masses - Results Results: Laboratory Results WBC 7.6 x10^3/uL (4.8-10.8) 10/20/23 05:13 RBC 3.64 10^6/uL (4.70-6.10) L 10/20/23 05:13 Hgb 10.8 g/dL (14.0-18.0) L 10/20/23 05:13 Hct 32.7 % (42.0-52.0) L 10/20/23 05:13 MCV 89.8 fL (80.0-94.0) 10/20/23 05:13 MCH 29.7 pg (27.0-31.0) 10/20/23 05:13 MCHC 33.0 g/dL (32.0-36.0) 10/20/23 05:13 RDW 16.4 % (12.0-15.0) H 10/20/23 05:13 Plt Count 297 10^3/uL (130-450) 10/20/23 05:13 MPV 10.4 fL (7.4-11.4) 10/20/23 05:13 Neut # (Auto) 5.4 10^3/uL (1.5-6.6) 10/20/23 05:13 Lymph # (Auto) 1.3 10^3/uL (1.5-3.5) L 10/20/23 05:13 [place] # (Auto) 0.7 10^3/uL (0.0-1.0) 10/20/23 05:13 Eos # (Auto) 0.2 10^3/uL (0.0-0.7) 10/20/23 05:13 Baso # (Auto) 0.0 10^3/uL (0.0-0.1) 10/20/23 05:13 Absolute Nucleated RBC 0.00 x10^3/uL 10/20/23 05:13 Nucleated RBC % 0.0 /100WBC 10/20/23 05:13 D-Dimer > 1050.0 ng/mL (200.0-255.0) H 10/18/23 11:20 Sodium 136 mmol/L (135-145) 10/20/23 05:13 Potassium 3.8 mmol/L (3.5-4.5) 10/20/23 05:13 Chloride 104 mmol/L (101-111) 10/20/23 05:13 Carbon Dioxide 27 mmol/L (21-32) 10/20/23 05:13 Anion Gap 5.0 (6-13) L 10/20/23 05:13 BUN 12 mg/dL (6-20) 10/20/23 05:13 Creatinine 0.8 mg/dL (0.6-1.3) 10/20/23 05:13 Estimated GFR (MDRD) 94 (>89) 10/20/23 05:13 Glucose 103 mg/dL (74-104) 10/20/23 05:13 Calcium 8.8 mg/dL (8.5-10.3) 10/20/23 05:13 Iron 125 ug/dL (50-212) 10/19/23 05:02 TIBC 270 ug/dL (250-450) 10/19/23 05:02 % Saturation 46 % (20-50) 10/19/23 05:02 Transferrin 193 mg/dL (203-362) L 10/19/23 05:02 Total Bilirubin 2.0 mg/dL (0.2-1.0) H 10/20/23 05:13 AST 152 IU/L (10-42) H 10/20/23 05:13 ALT 260 IU/L (10-60) H 10/20/23 05:13 Alkaline Phosphatase 234 IU/L (42-121) H 10/20/23 05:13 Troponin I High Sens 5.0 ng/L (2.3-19.7) 10/18/23 11:20 Total Protein 5.6 g/dL (6.4-8.9) L 10/20/23 05:13 Albumin 3.1 g/dL (3.2-5.5) L 10/20/23 05:13 Globulin 2.5 g/dL (2.1-4.2) 10/20/23 05:13 Albumin/Globulin Ratio 1.2 (1.0-2.2) 10/20/23 05:13 Lipase 196 U/L (11-82) H 10/19/23 05:02 Free PSA 0.327 ng/mL (0.16-2.81) 10/20/23 05:13 Vitamin B12 1247 pg/mL (180-914) H 10/19/23 05:02 Folate 24.9 ng/mL (5.90 - >24.8) 10/19/23 05:02 - Procedures Procedures: Procedures RADIOGRAPHY OF GALLBLADDER & BILE DUCT USING OTH CONTRAST (10/07/23) RESECTION OF GALLBLADDER, PERCUTANEOUS ENDOSCOPIC APPROACH (10/07/23) Sepsis Event Note (H) - Evaluation Current Stage of Sepsis: Ruled out ABX Reporting Has patient been on IV antibiotics over the past 48 hours?: No
[2023-10-21 05:31] LABS: BASOPHILS % (AUTO) 0.4 %; EOSINOPHILS # (AUTO) 0.2 10^3/uL (0.0-0.7); EOSINOPHILS % (AUTO) 2.5 %; HCT - HEMATOCRIT 33.8 % (42.0-52.0); HGB - HEMOGLOBIN 10.7 g/dL (14.0-18.0); LYMPHOCYTES # (AUTO) 1.6 10^3/uL (1.5-3.5); LYMPHOCYTES % (AUTO) 21.8 %; MEAN CORPUSCULAR HEMOGLOBIN 28.5 pg (27.0-31.0); MEAN CORPUSCULAR HGB CONC 31.7 g/dL (32.0-36.0); MEAN CORPUSCULAR VOLUME 90.1 fL (80.0-94.0); MEAN PLATELET VOLUME 10.1 fL (7.4-11.4); MONOCYTES # (AUTO) 0.8 10^3/uL (0.0-1.0); MONOCYTES % (AUTO) 10.5 %; NEUTROPHILS # (AUTO) 4.7 10^3/uL (1.5-6.6); NEUTROPHILS % (AUTO) 64.5 %; PLT - PLATELET COUNT 302 10^3/uL (130-450); RED BLOOD COUNT 3.75 10^6/uL (4.70-6.10); RED CELL DISTRIBUTION WIDTH 16.6 % (12.0-15.0); WHITE BLOOD COUNT 7.2 x10^3/uL (4.8-10.8)
[2023-10-21 05:49] LABS: ALBUMIN 3.1 g/dL (3.2-5.5); ALBUMIN/GLOBULIN RATIO 1.2 (1.0-2.2); BILIRUBIN,TOTAL 1.1 mg/dL (0.2-1.0); CALCIUM 8.8 mg/dL (8.5-10.3); CREATININE 0.8 mg/dL (0.6-1.3); POTASSIUM 3.6 mmol/L (3.5-4.5); TOTAL PROTEIN 5.7 g/dL (6.4-8.9)
--- NOTE | 2023-10-21 10:16 | MISCELLANEOUS PROVIDER NOTE ---
Miscellaneous Provider Note - - Note: Will sign off care. Patient has done exceedingly well with resolution of his presenting symptoms. Review of his presentation, complaints, radiographic studies and laboratory values all point to the fact that he passed a common bile duct stone. The MRCP did not mention stones but this is in error. The question remains how many common bile duct stones does he have? Should he have recurrence of his symptoms then ERCP (not MRCP) should be done to diagnose AND with the sphincterotomy treat the common bile duct stones. It has been a pleasure meeting and participating in this patient's care. Thank you.
--- NOTE | 2023-10-21 12:24 | Discharge Plan ---
Discharge Plan Problem Reviewed?: Yes Disposition: 01 Home, Self Care Condition: Good Diet: Regular (low fat) Activity Restrictions: No Restrictions Shower Restrictions: No Driving Restrictions: No Weight Bearing: Full Weight Instruction Topics: Pancreatitis Acute Dc Health Concerns: Acute biliary Pancreatitis, resolved Left Renal mass, stable Chronic Aldana for BPH, stable Plan of Treatment: Per surgeon, you appears to have a passed a common bile duct stone. Recommends: if you have recurrence of symptoms then ERCP (not MRCP) should be done to diagnose AND with the sphincterotomy treat the common bile duct stones. Please follow up with your private surgeon or GI if symptoms reoccures Care Goals: Return to normal activities Assessment: Medically stay Additional Instructions or Follow Up instructions: Low fat food Avoid any alcohol for at least two weeks No Smoking: If you smoke, Please STOP! Call for help.
--- NOTE | 2023-10-21 12:32 | DISCHARGE SUMMARY ---
"Discharge Summary Admit Date: 10/18/23 Discharge Date: 10/21/23 Discharging Provider: Armando Mendoza Code Status: Attempt Resuscitation Condition at Discharge: Good Discharge Disposition: 01 Home, Self Care - DIAGNOSES Admission Diagnoses: acute pancreatitis Discharge Diagnoses with Status of Each Condition: Acute bilary pancreatitis, resolved Left renal mass, stable Chronic delgado for BPH, stable - HPI History of Present Illness: H&P was conducted via video remotely, using Access Cart. [place] is in [place] Physician is in [place]. No one is at bedside. 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 Pt was hospitalized from 10/05-10/09/23 for acute cholecystitis and had Lap mattie on 10/07/23, found to be gangrenous with obstructive gall stones. Pt has done well s/p discharge. He ate spaghetti and salad for supper the last 2 nights. Last night, he began to have back pain with radiation to substernal chest/epigastric area. Pain was 5/10 at its most intense; it then subsided and he was able to sleep. This morning when he woke, up felt the pain again and it would not resolve. +Nausea, no vomiting. BMs x 2 today, normal. Pt has had no urinary symptoms; no issues with his Delgado cat heter. No F/C. Pt has had a chronic cough x 1 month and has been enrolled into a chronic cough study, upcoming. No SOB. In the ER, Hgb 11.8, Lipase 3247, Bili 2.1, Alk Phos 198, AST 629, ALT 409, D D madeleine 1050 EKG: NSR at 64 bpm, no STTw changes CXR: mild pulmonary congestion CTA Chest: no P.E. CT Abdo/Pelvis: biliary ductal dilation; consider MRCP MRCP: 1.Mild peripancreatic inflammation surrounding the head and uncinate process, consistent with history of pancreatitis. 2.Mild prominence of the intrahepatic bile ducts centrally. No filling defects are seen. Common bile duct is within normal limits. 3.Gallbladder surgically absent. Heterogeneous appearance of the gallbladder fossa with possible fluid collection measuring 2.9 x 1.2 x 0.9 cm. Bile leak or infection is not excluded and short-term follow-up is recommended. 4.Complex cyst at the inferior pole left kidney with a nodule of enhancement at the superior aspect. Findings are concerning for renal cell carcinoma. If no intervention is performed, recommend short- term follow-up imaging in 3-6 months. 5.Indeterminate lesion within the left hepatic lobe measuring 2.9 cm which demonstrates mild T2 hyperintense signal, lower than a simple cyst and possible mild enhancement on delayed imaging. Attention on follow-up imaging. ER Physician D/W Dr. Medina, on-call surgeon and they recommended admission to medicine for bowel rest. Pt was given IVF, Zofran, Morphine in the ER. - CONSULTS | PROCEDURES Consultations: Urology consulted, recommend outpatient follow up; General surgery consulte - HOSPITAL COURSE Hospital Course: After admission, patient was given iv fluid, pain management, bowel rest, patient improved, abdominal pain better, N/V subsided, able to tolerate diet. Whild bilirubin 2-->4-->2-->1, with peak at 4. His Lipase 3000s improved to 169. Even the liver enzyme especially ALP not improve much, but AST, ALT are all trending down, anticipate the transaminase will resolve over time. 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 Recommends ERCP if symptoms reoccures. 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 Patient has elevated D-dimer, no sign of DVT or PE. It might related to the renal mass, will be followed by his urologist. Patient understands his medical condition very well. will follow up as instructed. At time of discharge, patient eats well, had bowel movements, walks in unit inde pendently. - ALLERGIES Allergies/Adverse Reactions: Allergies Allergy/AdvReac Type Severity Reaction Status Date / Time No Known Drug Allergies Allergy Verified 10/18/23 11:00 - MEDICATIONS Home Medications: Ambulatory Orders Medication Instructions Recorded Confirmed Finasteride [Proscar] 5 mg PO DAILY 10/06/23 10/18/23 Lisinopril [Zestril] 20 mg PO BID 10/06/23 10/18/23 Spironolactone [Aldactone] 25 mg PO BID 10/06/23 10/18/23 Tamsulosin [Flomax] 0.4 mg PO DAILY 10/06/23 10/18/23 Rosuvastatin Calcium [Crestor] 20 mg PO HS 10/07/23 10/18/23 oxyBUTYnin chloride [Oxybutynin 5 mg PO DAILY 10/07/23 10/18/23 Chloride ER] Acetaminophen [Tylenol] 1,000 mg PO Q8HR PRN 14 Days #30 10/09/23 10/18/23 tablet Ibuprofen [Motrin] 1 tablet PO Q8H PRN #30 tablet 10/09/23 10/18/23 Mv-Min/FA/Vit K/Lutein/Zeaxant 1 cap PO DAILY 10/18/23 10/18/23 [Preservision Areds 2 Plus Mv] - PHYSICAL EXAM AT DISCHARGE General Appearance: positive: No acute distress, Alert Eyes Bilateral: positive: Normal inspection, PERRL, EOMI Neck: positive: No JVD Respiratory: positive: No respiratory distress Cardiovascular: positive: Regular rate & rhythm Peripheral Pulses: positive: 2+ Abdomen: positive: Non-tender Back: positive: Nml inspection Skin: positive: Color nml, Warm, Dry Neurologic/Psychiatric: positive: Oriented x3 - LABS Result Diagrams: 10/21/23 05:23 10/21/23 05:23 - DIAGNOSTIC IMAGING Diagnostic Imaging Results: Final report reviewed - SEPSIS Current Stage of Sepsis: Ruled out - FOLLOW UP Follow Up: Dr. Elijah Leach - TIME SPENT Time Spent in Discharge (Minutes): 55"
--- NOTE | 2023-10-21 12:51 | CT Report ---
PROCEDURE: Abdomen/Pelvis WO INDICATIONS: follow up on gallbladder fossa fluid collection TECHNIQUE: Helical axial CT of the abdomen and pelvis was obtained without intravenous contrast and reformatted in multiple planes. Radiation dose reduction was achieved utilizing automated exposure co ntrol or adjustment of mA and/or kV according to patient size. COMPARISON: MRCP 10/18/2023, CT abdomen pelvis 10/18/2023 FINDINGS: Lower thorax: The lung bases are clear. Heart size normal. Small hiatal hernia. Liver: Several hepatic hypodensities are stable from the prior, likely cysts. Left hepatic hemangiom a. No change. Biliary system: Central biliary prominence of resolved. No evidence of bile duct obstruction. Surgic al clips consistent with cholecystectomy. The small postoperative seroma in the gallbladder fossa is persistent but improved from the priors Pancreas: Unremarkable without mass or inflammation evident. Spleen: Normal in size and density. Adrenals: Normal morphology and density. Reproductive system: Prostate enlargement. Urinary system: Left renal complex cystic structure stable renal hydronephrosis or calculi bilateral ly. Aldana catheter in the bladder Gastrointestinal system: The bowel appears unremarkable with no evidence of bowel obstruction or inf lammation. The stomach appears unremarkable. Peritoneal spaces: No mesenteric or retroperitoneal adenopathy. No free air. No free fluid. Vasculature: The IVC, aorta and iliac vasculature are unremarkable. Abdominal wall: Left inguinal hernia contains fat without bowel involvement Musculoskeletal: Degenerative disc disease and arthropathy IMPRESSION: Cholecystectomy. Fluid collection in the gallbladder fossa is smaller and consistent with a resolving postoperative seroma Additional findings noted on the recent prior CT remained unchanged. Reviewed by: Rickey Moeller MD on 10/21/2023 11:50 AM JEANNA Approved by: Rickey Moeller MD on 10/21/2023 11:50 AM JEANNA Station ID: [id number]
[2023-10-21 13:20] VITALS: BP 148/85; O2SAT 94
== END 2023-10-21 13:15 | disposition home or self-care (01) | DRG 439 ==
LOC: ED 10:48 → MS2 19:29
PROVIDERS: ADMIT Internal Medicine; ATTEND Internal Medicine
DX: K85.10 Biliary acute pancreatitis without necrosis or infection (principal); K85.90 Acute pancreatitis without necrosis or infection, unspecified; R17 Unspecified jaundice; N28.1 Cyst of kidney, acquired; K76.9 Liver disease, unspecified; K80.50 Calculus of bile duct without cholangitis or cholecystitis without obstruction; N28.89 Other specified disorders of kidney and ureter; N40.0 Benign prostatic hyperplasia without lower urinary tract symptoms; Z96.0 Presence of urogenital implants; I10 Essential (primary) hypertension; E78.5 Hyperlipidemia, unspecified; Z90.49 Acquired absence of other specified parts of digestive tract; R05.8 Other specified cough; R79.89 Other specified abnormal findings of blood chemistry
CPT/HCPCS: 36415; 71045; 71275; 74176; 74177; 74183; 80053; 82105; 82607; 82746; 83540; 83690; 84154; 84466; 84484; 85025; 85379; 93005; 96374; 96375; 99285; A9270; A9575; J1650; J7120; Q9967

== ENCOUNTER 2023-11-12 19:57 | Emergency (ER) | payer MEDICARE ==
[2023-11-12 20:21] VITALS: BP 138/67; O2SAT 96
--- NOTE | 2023-11-12 20:32 | ED Physician Documentation ---
History of Present Illness - Stated complaint Stated Complaint: CLOGGED CATH - Chief complaint Chief Complaint: General - History obtained from History obtained from: Patient - Additonal information Additional information: He had a prostate procedure done on Wednesday, and has been having intermittent catheter blockage since and it has been blocked all day today. PD PAST MEDICAL HISTORY - Past Medical History Cardiovascular: Hypertension Respiratory: None Neuro: None Endocrine/Autoimmune: None GI: None : Benign prostate hypertrophy, Indwelling catheter, Other HEENT: None, Macular degeneration Psych: None Musculoskeletal: None Derm: Psoriasis - Past Surgical History Past Surgical History: Yes General: Cholecystectomy HEENT: Tonsil/Adenoidectomy - Present Medications Home Medications: Ambulatory Orders Medication Instructions Recorded Confirmed Finasteride [Proscar] 5 mg PO DAILY 10/06/23 10/18/23 Lisinopril [Zestril] 20 mg PO BID 10/06/23 10/18/23 Spironolactone [Aldactone] 25 mg PO BID 10/06/23 10/18/23 Tamsulosin [Flomax] 0.4 mg PO DAILY 10/06/23 10/18/23 Rosuvastatin Calcium [Crestor] 20 mg PO HS 10/07/23 10/18/23 oxyBUTYnin chloride [Oxybutynin 5 mg PO DAILY 10/07/23 10/18/23 Chloride ER] Acetaminophen [Tylenol] 1,000 mg PO Q8HR PRN 14 Days #30 10/09/23 10/18/23 tablet Ibuprofen [Motrin] 1 tablet PO Q8H PRN #30 tablet 10/09/23 10/18/23 Mv-Min/FA/Vit K/Lutein/Zeaxant 1 cap PO DAILY 10/18/23 10/18/23 [Preservision Areds 2 Plus Mv] - Allergies Allergies/Adverse Reactions: Allergies Allergy/AdvReac Type Severity Reaction Status Date / Time No Known Drug Allergies Allergy Verified 11/12/23 20:14 - Social History Does the pt smoke?: No Smoking Status: Never smoker Does the pt drink ETOH?: No Does the pt have substance abuse?: No - Immunizations Immunizations are current?: Yes - POLST Patient has POLST: No PD ED PE NORMAL - Vitals Vital signs reviewed: Yes - General General: Alert and oriented X 3, No acute distress - Male Male : Other (Aldana catheter in place, 22 [place]e. I was able to flush it but no urine returned.) - Neuro Neuro: Alert and oriented X 3 Results - Vitals Vitals: Vital Signs - 24 hr 11/12/23 20:14 Temperature 37.3 C Heart Rate 80 Respiratory 16 Rate Blood Pressure 138/67 H O2 Saturation 96 Oxygen O2 Source Room air PD Medical Decision Making - ED course ED course: He had a [address] I tried to flush it and it would flush but nothing returned. Subsequently his catheter was removed and we tried a voiding trial which he did not pass, and then I attempted to place a 24 [place]e catheter but with a lot of pain and resistance at the prostate and he did not tolerate it. Subsequently 16 was placed and some bloody clots came out and the urine was flowing. Departure - Departure Disposition: 01 Home, Self Care Clinical Impression: Complication, blocked Aldana catheter Condition: Good Record reviewed to determine appropriate education?: Yes Instructions: ED Catheter Care Aldana Comments: You were seen tonight for a clogged Aldana catheter. I did attempt to go to a larger catheter, 24 but that did not seem to pass your prostate. Currently you have a 16 [place]e in. Drink plenty of fluids and return if worsening. Follow-up with your urologist on Wednesday as scheduled. Forms: PCP List
== END 2023-11-12 21:37 | disposition home or self-care (01) ==
LOC: ED 19:57
DX: T83.091A Other mechanical complication of indwelling urethral catheter, initial encounter (principal)
CPT/HCPCS: 51703; 99283